=== PATIENT | male | born 1955 | race Caucasian/White ===

== ENCOUNTER → 2020-09-04 12:07 | Outpatient (BNVA) | payer MEDICARE, SELFPAY | PROVIDERS: Family Provider Family Medicine; Visit Provider Nurse Practitioner | DX: Z20.828 Contact with and (suspected) exposure to other viral communicable diseases (principal) | CPT/HCPCS: 87635 ==

== ENCOUNTER 2020-10-07 20:26 | Observation (INO) | payer MEDICARE, SELFPAY ==
[2020-10-07] VITALS (17 sets, daily range): BP systolic 104–153; BP diastolic 75–114; PULSE 77–119; RESP 15–22; TEMP 36.9; O2SAT 91–93; BMI 40.6
--- NOTE | 2020-10-07 21:00 | ECG_ITS ---
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 Measurements Intervals [place] Rate: 109 P: 66 WI: 202 QRS: -61 QRSD: 99 T: 60 QT: 328 QTc: 442 Interpretive Statements SINUS TACHYCARDIA WITH FREQUENT SUPRAVENTRICULAR PREMATURE COMPLEXES PATTERN CONSISTENT WITH PULMONARY DISEASE LEFT ANTERIOR FASCICULAR BLOCK [QRS AXIS <= -45, QR IN I, RS IN II] Compared to ECG 10/07/2020 23:18:27 Ventricular premature complex(es) no longer present Aberrant conduction of supraventricular beat(s) no longer present Electronically Signed On 10-09-2020 10:59:55 AFRICAN HISTORY PROFESSOR by Mohsen Pratt M.D. [id number] f
--- NOTE | 2020-10-07 21:00 | XR_ITS ---
WS: [id number] Portable AP upright chest, 10/07/2020 Clinical Data: cp Comparison: Portable chest, 09/02/2018. Findings: No nodules, masses or effusions are seen. The heart is normal. The pulmonary vascularity is not increased. No pneumonia or pneumothorax is seen. There is opacity over the left diaphragm which probably represents atelectasis. The left diaphragm is slightly elevated. The aortic arch and descend ing aorta show tortuosity. There is minimal atelectasis over the surface of the right diaphragm. Jessica tor leads are on the chest wall. XR/XR chest 1V portable [id number] Impression: 1. Atherosclerosis. 2. Minimal atelectasis over right diaphragm and moderate atelectasis over left diaphragm.
--- NOTE | 2020-10-07 21:23 | W.ED.SOB ---
HPI - SOB/Dyspnea General: Chief Complaint: Shortness of Breath/Dyspnea Stated Complaint: possible cardiac issues Time Seen by Provider: 10/07/20 21:00 Source: patient Mode of arrival: ambulatory Limitations: no limitations History of Present Illness: HPI Narrative: 65-year-old male states that he diagnosed with Covid roughly 4 weeks ago. He states of last 2 days has had some shortness of breath and has noticed had some palpitations along with a burning sensation in his chest. He states his symptoms have improved here. He denies any worsening improving factors. He does have some tachycardia here. Denies any vomiting or diarrhea. Associated symptoms: Deny abdominal pain, chest pain, fever(s), nausea or vomiting Review of Systems Const: Denies: fever(s), chills, body aches or change in appetite Eyes: Denies: blurry vision or eye discomfort ENMT: Denies: throat pain or dental pain Card: Denies: chest pain Resp: Reports: dyspnea GI: Denies: abdominal pain, nausea, vomiting or diarrhea : Denies: dysuria Musc: Denies: neck pain or back pain Skin/Breast: Denies: rash Neuro: Denies: headache(s) Psych: Denies: depression Yogesh/Lymph: Denies: easy bruising All/Imm: Denies: urticaria PFSH ED PFSH: Social History Smoking and tobacco status: never smoked Alcohol intake: never History of recent travel: No Current gender identity: Male Physical Exam Const: COMMON NORMALS: no acute distress, patient oriented x3 and healthy appearing HENMT: COMMON NORMALS: normocephalic and atraumatic HEAD & SCALP: normocephalic and atraumatic Eye: COMMON NORMALS: Equal, round and reactive pupils present and EOMs intact bilaterally PUPIL: Yes Equal, round and reactive pupils present Neck/C-Spine: COMMON NORMALS: full ROM and supple Chest: COMMONS NORMALS: normal inspection of the chest and normal palpation of entire chest wall Resp: COMMON NORMALS: normal respiratory effort, No retractions and No use of accessory muscles AUSCULTATION: rales on the left Cardio: COMMON NORMALS: regular rate, regular rhythm and No murmurs present (Cardio) RATE: regular rate RHYTHM: regular rhythm GI: COMMON NORMALS: Normal to inspection, nondistended, normoactive bowel sounds present, Soft to palpation, non-tender and no masses PALPATION: Yes Soft to palpation Extremity: COMMON NORMALS: normal to inspection and full ROM Neuro: COMMON NORMALS: patient oriented x3, moves all extremities and no focal motor deficits Psych: COMMON NORMALS: mental status grossly normal, Normal thought process present and cooperative THOUGHT PROCESS: Normal thought process present Skin: COMMON NORMALS: no rashes or lesions noted and no wounds GENERAL SKIN EXAM: no rashes or lesions noted Course Vital Signs: Vital signs: Vital Signs Temperature 98.4 F 10/07/20 20:38 Pulse Rate 92 10/07/20 23:53 Respiratory Rate 18 10/07/20 23:53 Blood Pressure 104/75 10/07/20 23:53 Pulse Oximetry 92 10/07/20 23:53 MDM - SOB/Dyspnea MDM Narrative: Medical decision making narrative: Imtiaz presents here with new onset atrial fib. Patient's chest x-ray and CT chest here show atelectasis no signs of pulmonary embolism. He has no history of A. fib and I spoke to hospitalist will admit for observation for his new onset A. fib. Lab Data: Labs: Lab Results 10/07/20 10/07/20 10/07/20 Range/Units 21:10 21:10 21:10 WBC 12.1 H (4.0-10.0) 10^3/ uL RBC 4.70 (4.1-5.3) 10^6/u L Hgb 13.6 (11.7-16.6) g/dL Hct 42.8 (42.0-52.0) % MCV 91.1 (80-94) fL MCH 28.9 (28.0-34.0) pg MCHC 31.8 (30.0-36.0) g/dL RDW 13.3 (12.1-15.1) % Plt Count 278 (130-400) 10^3/c mm MPV 9.7 (7.4-10.4) fL Neut % (Auto) 72.5 % Lymph % (Auto) 16.7 % [place] % (Auto) 7.2 % Eos % (Auto) 1.7 % Baso % (Auto) 0.5 % Neut # (Auto) 8.79 H (1.8-7.7) 10^3/u L Lymph # (Auto) 2.0 (0.8-4.8) 10^3/u L [place] # (Auto) 0.9 (0.2-0.9) 10^3/u L Eos # (Auto) 0.2 (0.0-0.8) 10^3/u L Baso # (Auto) 0.1 (0.0-0.1) 10^3/u L Nucleated RBC % (a uto) 0 % Nucleated RBCs # 0.0 /100WBC PT 13.40 (12.1-14.9) SECO NDS INR 0.99 (0.8-1.2) D-Dimer 0.99 H (0-0.59) ug/mIFE U Sodium 140 (136-145) mmol/L Potassium 4.6 (3.5-5.1) mmol/L Chloride 101 (98-107) mmol/L Carbon Dioxide 26 (22-29) mmol/L Anion Gap 17.6 (5-19) BUN 24 H (8-23) mg/dL Creatinine 0.8 (0.7-1.2) mg/dL GFR Calculation 96.4 (90-130) mL/min Glucose 140 H (65-115) mg/dL Calculated Osmolal ity 296 H (285-295) mOsm/k g Calcium 11.4 H (8.5-10.5) mg/dL Total Bilirubin 0.4 (0.15-1.2) mg/dL AST 28 (0-40) U/L ALT 44 H (0-41) U/L Alkaline Phosphata se 70 (40-130) IU/L Troponin T Baselin e (0-15) ng/L Troponin T 120 Min florentin (0-15) ng/L Delta Troponin T (0-10) ABS# NT-Pro-B Natriuret Pep 117 (0-125) pg/mL Total Protein 8.0 (6.6-8.7) g/dL Albumin 4.3 (3.5-5.2) g/dL Globulin 3.7 (1.3-4.6) g/dL 10/07/20 10/07/20 Range/Units 21:10 22:53 WBC (4.0-10.0) 10^3/ uL RBC (4.1-5.3) 10^6/u L Hgb (11.7-16.6) g/dL Hct (42.0-52.0) % MCV (80-94) fL MCH (28.0-34.0) pg MCHC (30.0-36.0) g/dL RDW (12.1-15.1) % Plt Count (130-400) 10^3/c mm MPV (7.4-10.4) fL Neut % (Auto) % Lymph % (Auto) % [place] % (Auto) % Eos % (Auto) % Baso % (Auto) % Neut # (Auto) (1.8-7.7) 10^3/u L Lymph # (Auto) (0.8-4.8) 10^3/u L [place] # (Auto) (0.2-0.9) 10^3/u L Eos # (Auto) (0.0-0.8) 10^3/u L Baso # (Auto) (0.0-0.1) 10^3/u L Nucleated RBC % (a uto) % Nucleated RBCs # /100WBC PT (12.1-14.9) SECO NDS INR (0.8-1.2) D-Dimer (0-0.59) ug/mIFE U Sodium (136-145) mmol/L Potassium (3.5-5.1) mmol/L Chloride (98-107) mmol/L Carbon Dioxide (22-29) mmol/L Anion Gap (5-19) BUN (8-23) mg/dL Creatinine (0.7-1.2) mg/dL GFR Calculation (90-130) mL/min Glucose (65-115) mg/dL Calculated Osmolal ity (285-295) mOsm/k g Calcium (8.5-10.5) mg/dL Total Bilirubin (0.15-1.2) mg/dL AST (0-40) U/L ALT (0-41) U/L Alkaline Phosphata se (40-130) IU/L Troponin T Baselin e 13 (0-15) ng/L Troponin T 120 Min florentin 15.43 H (0-15) ng/L Delta Troponin T 2.43 (0-10) ABS# NT-Pro-B Natriuret Pep (0-125) pg/mL Total Protein (6.6-8.7) g/dL Albumin (3.5-5.2) g/dL Globulin (1.3-4.6) g/dL Imaging Data^: CXR: Attestation: I personally reviewed and interpreted this imaging study as follows: My impression: lll pneumonia CT Chest: Radiologist's impression: [employer] [place] [address] CT Scan Report Signed Patient: Imtiaz Sheth Unit #: [id number] : 1955 Age/Sex: 65 / M ADM Date: 10/07/20 Loc: ER Room/Bed: Attending Dr: Ordering Provider/Ordering MD: Domi Baker MD Date of Service: 10/07/20 Procedure(s): CT angio chest PE protcl [id number] Accession Number(s): [id number] Report Number: [id number] PROCEDURE INFORMATION: Exam: CT Angiography Chest With Contrast Exam date and time: 10/07/2020 10:14 PM Age: 65 years old Clinical indication: Patient HX: C/O SOB and dyspnea. 4 weeks post covid positive. TECHNIQUE: Imaging protocol: Computed tomographic angiography of the chest with contrast. 3D rendering (Not supervised by radiologist): MIP and/or 3D reconstructed images were created by the technologist. Radiation optimization: All CT scans at this facility use at least one of these dose optimization techniques: automated exposure control; mA and/or kV adjustment per patient size (includes targeted exams where dose is matched to clinical indication); or iterative reconstruction. Contrast material: OMNI 350; Contrast volume: 141 ml; Contrast route: INTRAVENOUS (IV); COMPARISON: CR XR chest 1V portable [id number] 10/07/2020 9:04 PM RADIATION DOSE METRICS: Total DLP (mGy-cm): 1510.23 FINDINGS: Limitations: Suboptimal/less than robust opacification the pulmonary arterial tree. Pulmonary arteries: There is no evidence of filling defects within the pulmonary arterial circulation to suggest pulmonary embolism. Aorta: There is no thoracic aortic aneurysm or dissection. Lungs: There is partial atelectasis in the left lower lobe and lingula abutting the diaphragm. There is also some mild subsegmental atelectasis posteriorly at the right lung base. No focal infiltrate or pneumonia is identified. Pleural spaces: Unremarkable. No pneumothorax. No pleural effusion. Heart: Unremarkable. No cardiomegaly. No pericardial effusion. Mediastinal space: A moderate hiatal hernia is present. There is thickening of the mid and distal esophagus which may represent esophagitis. Correlation with clinical findings is suggested. Lymph nodes: There is mild right paratracheal adenopathy with lymph nodes measuring up to 13 x 19 mm there are also prominent lymph nodes in the subcarinal region and small prevascular lymph nodes. Diaphragm: There is chronic elevation of left hemidiaphragm. Bones/joints: There is mild wedging of T11 which appears represent chronic osteoporotic compression fracture.. Soft tissues: Unremarkable. CT/CT angio chest PE protcl [id number] IMPRESSION: 1. Limited examination due to poor contrast opacification of the pulmonary arteries. 2. No gross evidence of pulmonary embolism. 3. Mild paratracheal adenopathy. 4. Hiatus hernia. 5. Esophageal thickening which may represent esophagitis. Further evaluation on a non urgent basis is suggested. 6. Pulmonary atelectasis. 7. There is no evidence for pneumonia. EKG Data^: EKG 1: Attestation: I personally reviewed and interpreted this EKG as follows: EKG Interpretation Date: 10/07/20 EKG interpretation time: 20:43 Interpretation: sinus tach hr [address] or t wave abnormalities qrs 93 qtc 388 EKG 2: Attestation: I personally reviewed and interpreted this EKG as follows: EKG Interpretation Date: 10/07/20 EKG interpretation time: 23:18 Interpretation: afib with rvr hr [address] or t wave abnormalities qrs 9 qtc 383 Discharge Plan Discharge Patient Disposition: Admitted As Inpatient Clinical Impression: Atelectasis, Atrial fibrillation Condition: Stable Discharge Diet: Advance as tolerated Discharge Activity: Resume usual activity Coding Level of Care Code ED Terrazzo Worker for Chg Fwd Exam Comprehensive
[2020-10-07 21:40] LABS: Basophils # 0.1 10^3/uL (0.0-0.1); Basophils % 0.5 %; Eosinophils # 0.2 10^3/uL (0.0-0.8); Eosinophils % 1.7 %; Hematocrit 42.8 % (42.0-52.0); Hemoglobin 13.6 g/dL (11.7-16.6); Lymphocytes % 16.7 %; Mean Corpuscular HGB Conc 31.8 g/dL (30.0-36.0); Mean Corpuscular Hemoglobin 28.9 pg (28.0-34.0); Mean Corpuscular Volume 91.1 fL (80-94); Mean Platelet Volume 9.7 fL (7.4-10.4); Monocytes # 0.9 10^3/uL (0.2-0.9); Monocytes % 7.2 %; Neutrophils # 8.79 10^3/uL (1.8-7.7); Neutrophils % 72.5 %; Nucleated Red Blood Cells % 0 %; Platelet Count 278 10^3/cmm (130-400); Red Cell Distribution Width 13.3 % (12.1-15.1); White Blood Count 12.1 10^3/uL (4.0-10.0)
[2020-10-07] MEDS: cefTRIAXone 1,000 MG in sodium chloride 0.9% (plus) 50 ML 100 MG IV (21:45)
[2020-10-07 21:51] LABS: INR 0.99 (0.8-1.2)
[2020-10-07 21:54] LABS: D Dimer 0.99 ug/mIFEU (0-0.59)
--- NOTE | 2020-10-07 21:55 | CTR_ITS ---
PROCEDURE INFORMATION: Exam: CT Angiography Chest With Contrast Exam date and time: 10/07/2020 10:14 PM Age: 65 years old Clinical indication: Patient HX: C/O SOB and dyspnea. 4 weeks post covid positive. TECHNIQUE: Imaging protocol: Computed tomographic angiography of the chest with contrast. 3D rendering (Not supervised by radiologist): MIP and/or 3D reconstructed images were created by the technologist. Radiation optimization: All CT scans at this facility use at least one of these dose optimization techniques: automated exposure control; mA and/or kV adjustment per patient size (includes targeted exams where dose is matched to clinical indication); or iterative reconstruction. Contrast material: OMNI 350; Contrast volume: 141 ml; Contrast route: INTRAVENOUS (IV); COMPARISON: CR XR chest 1V portable [id number] 10/07/2020 9:04 PM RADIATION DOSE METRICS: Total DLP (mGy-cm): 1510.23 FINDINGS: Limitations: Suboptimal/less than robust opacification the pulmonary arterial tree. Pulmonary arteries: There is no evidence of filling defects within the pulmonary arterial circulation to suggest pulmonary embolism. Aorta: There is no thoracic aortic aneurysm or dissection. Lungs: There is partial atelectasis in the left lower lobe and lingula abutting the diaphragm. There is also some mild subsegmental atelectasis posteriorly at the right lung base. No focal infiltrate or pneumonia is identified. Pleural spaces: Unremarkable. No pneumothorax. No pleural effusion. Heart: Unremarkable. No cardiomegaly. No pericardial effusion. Mediastinal space: A moderate hiatal hernia is present. There is thickening of the mid and distal esophagus which may represent esophagitis. Correlation with clinical findings is suggested. Lymph nodes: There is mild right paratracheal adenopathy with lymph nodes measuring up to 13 x 19 mm there are also prominent lymph nodes in the subcarinal region and small prevascular lymph nodes. Diaphragm: There is chronic elevation of left hemidiaphragm. Bones/joints: There is mild wedging of T11 which appears represent chronic osteoporotic compression fracture.. Soft tissues: Unremarkable. CT/CT angio chest PE protcl [id number] IMPRESSION: 1. Limited examination due to poor contrast opacification of the pulmonary arteries. 2. No gross evidence of pulmonary embolism. 3. Mild paratracheal adenopathy. 4. Hiatus hernia. 5. Esophageal thickening which may represent esophagitis. Further evaluation on a non urgent basis is suggested. 6. Pulmonary atelectasis. 7. There is no evidence for pneumonia. Radiation Dose CTDIVOL = (mGy): DLP = 1510.23 (mGy-cm)
[2020-10-07 22:00] LABS: Troponin(5th) Baseline 13 ng/L (0-15)
[2020-10-07 22:09] LABS: Alanine Aminotransferase 44 U/L (0-41); Albumin Level 4.3 g/dL (3.5-5.2); Alkaline Phosphatase 70 IU/L (40-130); Anion Gap 17.6 (5-19); Aspartate Amino Transferase 28 U/L (0-40); Blood Urea Nitrogen 24 mg/dL (8-23); Calcium 11.4 mg/dL (8.5-10.5); Carbon Dioxide 26 mmol/L (22-29); Chloride 101 mmol/L (98-107); Creatinine Clr Calc Pharmacy 127.9923; Globulin 3.7 g/dL (1.3-4.6); Glomerular Filtration Rate 96.4 mL/min (90-130); Glucose 140 mg/dL (65-115); NT Pro B Type Natriuretic Pept 117 pg/mL (0-125); Osmolality Calculated 296 mOsm/kg (285-295); Potassium 4.6 mmol/L (3.5-5.1); Sodium 140 mmol/L (136-145); Total Bilirubin 0.4 mg/dL (0.15-1.2)
[2020-10-07] MEDS: iohexol 350 mg/mL 100 mL Btl IV ×2 (22:25→22:29)
[2020-10-07] MEDS: azithromycin 500 MG in sodium chloride 0.9% 250 ML 250 MG IV (22:41)
[2020-10-07] MEDS: lidocaine 2% viscous 15 ML, aluminum-mag hydrox-simethicon 30 ML, sucralfate oral liq 1 GM PO (22:43)
[2020-10-07] MEDS: ondansetron 2 mg/ML SDV 2 mL 4 MG IVP (22:57)
--- NOTE | 2020-10-07 23:00 | ECG_ITS ---
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1955 Requested By: Domi Baker Order Number: [id number] Reading MD: JUANJOSE STEELE Measurements Intervals [place] Rate: 110 P: MT: QRS: -56 QRSD: 93 T: 56 QT: 318 QTc: 430 Interpretive Statements ATRIAL FIBRILLATION WITH RAPID VENTRICULAR RESPONSE WITH ABERRANT CONDUCTION OR VENTRICULAR PREMATURE COMPLEXES PATTERN CONSISTENT WITH PULMONARY DISEASE LEFT ANTERIOR FASCICULAR BLOCK [QRS AXIS <= -45, QR IN I, RS IN II] Compared to ECG 09/02/2018 19:29:55 Ventricular premature complex(es) now present Aberrant conduction of supraventricular beat(s) now present Left anterior fascicular block now present Bradycardia, nonsinus no longer present T-wave abnormality no longer present Possible ischemia no longer present Electronically Signed On 10-09-2020 21:35:03 AUTO PARTS COUNTER PERSON by JUANJOSE STEELE [id number]
--- NOTE | 2020-10-07 23:21 | PC.NURSE ---
EKG done 2319 and shown to ER doctor
[2020-10-07 23:23] LABS: Troponin 5 2HR 15.43 ng/L (0-15); Troponin 5 2HR Delta 2.43 ABS# (0-10)
[2020-10-07] MEDS: albuterol 8 gm MDI 2 PUFF INHALATION (23:36)
[2020-10-08] VITALS (15 sets, daily range): BP systolic 105–143; BP diastolic 65–87; PULSE 70–108; RESP 17–26; TEMP 36.9; O2SAT 91–93
--- NOTE | 2020-10-08 01:42 | P.HP_ITS ---
Providers/Chief Complaint Primary Care Provider: Vidal Kaye DO Chief Complaint: possible cardiac issues History of Present Illness Imtiaz Sheth is a 65 year old male with a history of hypertension presented to the emergency department with a complaint of shortness of breath and palpitations. Patient denied any chest pain. Patient EKG demonstrated rapid atrial fibrillation. He was given a dose of Cardizem which improved his heart rate. Patient denied any history of atrial fibrillation or cardiac condition but noted he is supposed to be on diltiazem ER and spironolactone. CTA thorax done in the ED shows atelectasis, no infiltrate. Initial troponin is negative. Patient is placed under observation for further management of atrial fibrillation. Review of Systems Narrative: He denied any headache, he denied any nausea or vomiting or d iarrhea. He denied any abdominal pain. Except as documented, all other systems reviewed and negative. Medications/Allergies Home Medications Medication Instructions Recorded Confirmed Last Taken Type alprazolam 0.25 mg tablet See Rx Instructions PO DAILY PRN 09/04/20 10/07/20 Unknown History diltiazem HCl 240 mg capsule,24 180 mg PO BID@1000,2200 cap 09/04/20 10/07/20 10/07/20 History hr,extended release pantoprazole 40 mg tablet,delayed 40 mg PO DAILY@2200 09/04/20 10/07/20 10/06/20 History release sertraline 100 mg tablet 150 mg PO DAILY@1000 tab 09/04/20 10/07/20 10/07/20 History spironolactone 25 mg tablet 25 mg PO DAILY@1000 09/04/20 10/07/20 10/07/20 History Vitamin D3 50 mcg PO DAILY@1000 10/07/20 10/07/20 10/07/20 History albuterol sulfate 2 inh INHALATION Q6H PRN #8 gm 10/07/20 Unknown Rx ascorbic acid (vitamin C) [Vitamin 250 mg PO DAILY@1000 10/07/20 10/07/20 10/07/20 History C] cefdinir 300 mg PO BID@1000,2200 10/07/20 10/07/20 10/07/20 History cephalexin [Keflex] 500 mg PO Q6H 7 Days #28 cap 10/07/20 Unknown Rx fluticasone propionate 1 spray INTRANASAL DAILY PRN 10/07/20 10/07/20 Unknown History levofloxacin 500 mg PO DAILY@1000 10/07/20 10/07/20 10/07/20 History losartan-hydrochlorothiazide 1 tab PO DAILY@2200 10/07/20 10/07/20 10/06/20 Hist ory ondansetron 4 mg PO Q6H PRN #14 tab 10/07/20 Unknown Rx zinc 1 tab PO DAILY@1000 10/07/20 10/07/20 10/07/20 History Allergies Allergy/AdvReac Type Severity Reaction Status Date / Time Penicillins Allergy Unknown Unknown Verified 09/04/20 09:12 PFSH Acute PFSH: Medical History (Updated 10/08/20 @ 02:45 by Robert Newman MD) Hypertension Family History (Updated 10/08/20 @ 02:40 by Robert Newman MD) Mother Diabetes Social History Smoking and tobacco status: never smoked Alcohol intake: never History of recent travel: No Current gender identity: Male Vitals/I&O/Wt Last Vital Signs Temp 98.4 F 10/07/20 20:38 Pulse 76 10/08/20 00:35 Resp 18 10/08/20 00:35 BP 143/85 10/08/20 00:35 Pulse Ox 92 10/08/20 00:35 10/07/20 10/07/20 10/08/20 14:59 22:59 06:59 Intake Total 50 / 50 250 / 300 Balance 50 / 50 250 / 300 Weight last 48 hrs Weight 136.078 kg Physical Exam Const: COMMON NORMALS: no acute distress, patient oriented x3 and alert NUTRITIONAL APPEARANCE: obese HENMT: COMMON NORMALS: normocephalic, atraumatic and moist oral mucous membranes Eye: COMMON NORMALS: Equal, round and reactive pupils present, EOMs intact bilaterally, conjunctivae normal and no scleral icterus Neck/C-Spine: COMMON NORMALS: no lymphadenopathy, supple, no JVD and Thyroid normal Lymph: LYMPHATIC: no lymphadenopathy noted Chest: COMMONS NORMALS: normal inspection of the chest Resp: COMMON NORMALS: normal respiratory effort, No retractions, No use of accessory muscles and clear to auscultation bilaterally Cardio: COMMON NORMALS: S1 normal heart sound present and S2 normal heart sound present RHYTHM: abnormal rhythm irregularly irregular GI: COMMON NORMALS: Normal to inspection, nondistended, normoactive bowel sounds present, Soft to palpation, non-tender and No hepatosplenomegaly present : COMMON NORMALS: Yes no CVA tenderness Back/Pelvis: COMMON NORMALS: no CVA tenderness and no thoracic nor lumbar tenderness Extremity: COMMON NORMALS: normal to inspection, capillary refill normal, no clubbing, cyanosis or edema and no pedal edema Neuro: COMMON NORMALS: patient oriented x3, CN's II-XII intact bilaterally, moves all extremities and no focal motor deficits Psych: COMMON NORMALS: mental status grossly normal, Normal thought process present, normal affect and speech normal Skin: COMMON NORMALS: no rashes or lesions noted, turgor normal and no jaundice Data : 10/07/20 21:10 10/07/20 21:10 Micro: Microbiology 10/07/20 21:41 Blood Culture - Preliminary Blood SPECIMEN COLLECTED 10/07/20 21:38 Blood Culture - Preliminary Blood SPECIMEN COLLECTED A&P Assessment and plan (1) Atrial fibrillation: Status: Acute (2) Hypertension: Status: Chronic (3) COVID-19 virus infection: Status: Inactive Additional A&P Information Place patient under observation. Supplemental oxygen as needed. We will resume his home dose Cardizem. Obtain echocardiogram. Continue to trend troponin. Continue other home antihypertensives. Cardiology consult. Anticoagulation per cardiology. Attestations Medical Necessity Statement*: Patient presenting with rapid atrial fibrillation of new onset. He will need to be hospitalized for further evaluation and management. He is expected to spend less than 2 midnights. Time Spent in Patient Care: 56 minutes. Coding Level of Care Code Acute Data Warehouse Consultant for [facility] Fwd Exam Comprehensive Diagnoses Atrial fibrillation I48.91 Hypertension I10 COVID-19 virus infection U07.1
--- NOTE | 2020-10-08 02:46 | USCV_ITS ---
Meryl Imtiaz Age: 65 Gender: M : 1955 Exam Date: 10/08/2020 05:46 Ordering Phys: Robert Newman MD Technologist: Jazmyn Veloz [place] [facility] [place]: NEW ONSET OF AFIB BP: 136 / 80 HR: 89 Rhythm: Atrial fibrillation Technical Quality: Technically difficult study MEASUREMENTS (Male / Female) Normal Values 2D ECHO LV Diastolic Diameter PLAX 4.9 cm 4.2 - 5.9 / 3.9 - 5.3 cm LV Systolic Diameter PLAX 2.7 cm LV Chamber Size 4.4 cm IVS Diastolic Thickness 1.5 cm 0.6 - 1.0 / 0.6 - 0.9 cm IVS Systolic Thickness 2.4 cm LVPW Diastolic Thickness 1.6 cm 0.6 - 1.0 / 0.6 - 0.9 cm LVPW Systolic Thickness 2.1 cm RV Chamber Size 2.0 cm LVOT Diameter 2.0 cm LV Ejection Fraction 2D Teich 76.2 % LV Ejection Fraction MOD 2C 39.6 % LV Ejection Fraction 2C AL 42.1 % LA Diameter 2.9 cm LA Width 4.0 cm LA Height 4.9 cm RA Width 3.4 cm RA Height 3.5 cm Aorta at Sinotubular Diameter 4.0 cm M-MODE LV Diastolic Diameter MM 4.3 cm 4.2 - 5.9 / 3.9 - 5.3 cm LV Systolic Diameter MM 2.9 cm LV Ejection Fraction MM Teich 60.5 % IVS Diastolic Thickness MM 1.4 cm 0.6 - 1.0 / 0.6 - 0.9 cm IVS Systolic Thickness MM 1.7 cm LVPW Diastolic Thickness MM 0.9 cm 0.6 - 1.0 / 0.6 - 0.9 cm LVPW Systolic Thickness MM 2.0 cm RV Diastolic Diameter MM 1.4 cm Aortic Annulus Diameter 4.2 cm LA Ao Ratio MM 1.0 MV E Point Septal Separation 0.6 cm DOPPLER AV Peak Velocity 136.0 cm/s LVOT Peak Velocity 95.0 cm/s AV Area Cont Eq vti 2.2 cm squared AV Area Cont Eq pk 2.3 cm squared MV Area PHT 2.3 cm squared MV E' Velocity 48.0 cm/s Mitral E to MV E' Ratio 5.6 Mitral E to LV E' Lateral Ratio 4.9 Mitral E to LV E' Septal Ratio 6.6 TR Peak Velocity 152.3 cm/s TR Peak Gradient 9.3 mmHg TR Mean Velocity 111.4 cm/s TR Mean Gradient 5.4 mmHg TR Velocity Time Integral 36.9 cm TV Peak E Velocity 72.0 cm/s Right Atrial Pressure 5.0 mmHg Pulmonary Artery Systolic Pressu 14.3 mmHg PV Peak Velocity 76.0 cm/s RV Acceleration Time 0.2 s RV Ejection Time 0.3 s RV AcT/ET 0.5 FINDINGS Left Ventricle Normal left ventricular cavity size. Hyperdynamic left ventricular systolic function. No regional wall motion abnormalities. Left ventricular ejection fraction is estimated at 70 %. Grade I/IV diastolic dysfunction (abnormal relaxation filling pattern), normal to mildly elevated filling pressures. Right Ventricle The right ventricle is normal in size and function. Right Atrium The right atrium is normal in size. Left Atrium The left atrium is normal in size. Mitral Valve Structurally normal mitral valve without significant stenosis or prolapse. There is no mitral regurgitation. Aortic Valve Aortic valve sclerosis without stenosis or regurgitation. Tricuspid Valve Structurally normal tricuspid valve without significant stenosis or regurgitation. Pulmonary artery systolic pressure is normal. Pulmonic Valve Structurally normal pulmonic valve without significant stenosis. There is no pulmonic regurgitation. Pericardium Normal pericardium without effusion. Aorta Normal ascending aorta dimension. CONCLUSIONS 1-Normal left ventricular cavity size. Hyperdynamic left ventricular systolic function. No regional wall motion abnormalities. Left ventricular ejection fraction is estimated at 70 %. Grade I/IV diastolic dysfunction (abnormal relaxation filling pattern), normal to mildly elevated filling pressures. 2-No significant valve abnormalities. 3-Pulmonary artery systolic pressure is within normal limits. 4-There is no pericardial effusion. 5-Right atrial pressure is around 5 mm of mercury. 6-There are no prior echocardiogram studies to compare. Caroline Quiroz MD (Electronically Signed) Final Date: 08 October 2020 13:42 S
[2020-10-08] MEDS: alum-mag-hydroxide-sime 30 mL UDC 15 ML PO (05:01)
--- NOTE | 2020-10-08 08:26 | PM.CONSULT ---
Providers/Reason For Consult Consulting Physican/Specialty*: Mohsen Pratt MD/ Cardiology Reason for Consult*: New onset atrial fibrillation Requesting Physcian: Dr Newman Attending Physician: Nehemias Dill MD Primary Care Provider: Vidal Kaye DO History of Present Illness History of Present Illness Imtiaz Sheth is a 65 year old male with a history of hypertension presented to the emergency department with a complaint of palpitations and heartburn. He also had an episode of vomiting.. Patient denied any chest pain. Patient's EKG showed sinus rhythm with frequent PACs however per report from hospitalist team, he was in atrial fibrillation with RVR before getting Cardizem. Patient received Cardizem and converted to normal sinus rhythm. Cardiology was consulted for recommendations regarding anticoagulation and rate controlling agents. Patient is currently in normal sinus rhythm. He denies any complaints of chest pain, shortness of breath or palpitations. His blood pressure is controlled. Review of Systems Narrative: CONSTITUTIONAL: No fever chills weight loss or gain or night sweats. [] HEENT: Normocephalic, atraumatic.[] RESPIRATORY: No cough, sputum, hemoptysis or wheezing.[] CARDIOVASCULAR: No shortness of breath, chest pain, PND, orthopnea, lower extremity edema, presyncope or syncope. [] GI: no nausea vomiting diarrhea. [] ETHICS MANAGER: No numbness, tingling, weakness or loss of function in any part of the body. [] MUSCULOSKELETAL: No knee or joint pain or rashes. [] Meds/Allergies Home Medications and Allergies Home Medications Medication Instructions Recorded Confirmed Last Taken Type alprazolam 0.25 mg tablet See Rx Instructions PO DAILY PRN 09/04/20 10/07/20 Unknown History diltiazem HCl 240 mg capsule,24 180 mg PO BID@1000,2200 cap 09/04/20 10/07/20 10/07/20 History hr,extended release sertraline 100 mg tablet 150 mg PO DAILY@1000 tab 09/04/20 10/07/20 10/07/20 History spironolactone 25 mg tablet 25 mg PO DAILY@1000 09/04/20 10/07/20 10/07/20 History Vitamin D3 50 mcg PO DAILY@1000 10/07/20 10/07/20 10/07/20 History albuterol sulfate 2 inh INHALATION Q6H PRN #8 gm 10/07/20 Unknown Rx cefdinir 300 mg PO BID@1000,2200 10/07/20 10/07/20 10/07/20 History fluticasone propionate 1 spray INTRANASAL DAILY PRN 10/07/20 10/07/20 Unknown History losartan-hydrochlorothiazide 1 tab PO DAILY@2200 10/07/20 10/07/20 10/06/20 History ondansetron 4 mg PO Q6H PRN #14 tab 10/07/20 Unknown Rx zinc 1 tab PO DAILY@1000 10/07/20 10/07/20 10/07/20 History Protonix 40 mg PO BID #0 tab 10/08/20 10/07/20 10/06/20 Rx apixaban [Eliquis] 5 mg PO Q12H #60 tab 10/08/20 Unknown Rx Allergies Allergy/AdvReac Type Severity Reaction Status Date / Time Penicillins Allergy Unknown Unknown Verified 09/04/20 09:12 PFSH Acute PFSH: Medical History Hypertension Family History Mother Diabetes Social History Smoking and tobacco status: never smoked Alcohol intake: never History of recent travel: No Current gender identity: Male Vitals/I&O/Wt Last Vital Signs Temp 98.5 F 10/08/20 04:00 Pulse 88 10/08/20 06:00 Resp 23 H 10/08/20 06:00 BP 129/65 10/08/20 06:00 Pulse Ox 93 10/08/20 06:00 10/07/20 10/08/20 10/08/20 22:59 06:59 14:59 Intake Total 50 / 50 250 / 300 100 / 100 Output Total 250 / 250 Balance 50 / 50 0 / 50 100 / 100 Weight last 48 hrs Weight 300 lb Physical Exam Narrative: EXAM NARRATIVE: GENERAL: Patient is alert, awake and oriented x3. [] NECK: No jugular vein distension. [] HEENT: No cyanosis. No icterus. No pallor. [] HEART: Regular S1 and S2. No murmur, rub or gallop. [] LUNGS: Clear to auscultate bilaterally. [] ABDOMEN: Soft, nontender and nondistended. Positive bowel sounds. No guarding, rebound or tenderness. [] CENTRAL NERVOUS SYSTEM: Grossly nonfocal. [] EXTREMITIES: Lower extremities with no edema bilaterally. Pulses palpable in the lower extremities, both dorsalis pedis and posterior tibial. [] Data Micro: Micro: Microbiology 10/07/20 21:41 Blood Culture - Pr eliminary Blood SPECIMEN [facility] 10/07/20 21:38 Blood Culture - Pr eliminary Blood SPECIMEN [facility] A&P Assessment and plan (1) Hypertension: Status: Chronic (2) Morbid obesity with BMI of 40.0-44.9, adult: Status: Acute (3) New onset atrial fibrillation: Status: Acute Patient's EKG shows sinus rhythm with frequent PACs. However has been reported before getting Cardizem he was in A. fib. No strips available. Given his chads vasc score is at least 2 with his age and hypertension, he needs anticoagulation for stroke prevention. I had a discussion about it with him and he agrees with initiating anticoagulation. As an outpatient we might need event monitor to confirm diagnosis of atrial fibrillation. Continue Cardizem Low-sodium diet and exercise advised. Echocardiogram has been ordered. If echo is normal, he can be discharged with outpatient follow-up. Thank you for involving us with care of this patient. Please call with questions. Coding Level of Care Code Acute Manager Residential for g Fwd Diagnoses Hypertension I10 Morbid obesity with BMI of 40.0-44.9, adult E66.01; Z68.41 New onset atrial fibrillation I48.91
[2020-10-08] MEDS: metoprolol tartrate 25 mg Tablet PO (08:48)
[2020-10-08] MEDS: cholecalciferol (vitamin D3) 1,000 unit Tablet 2000 UNIT PO (08:49)
[2020-10-08] MEDS: dilTIAZem ER (24HR) 180 mg Capsule PO (08:50)
[2020-10-08] MEDS: spironolactone 25 mg Tablet PO (08:50)
[2020-10-08] MEDS: sertraline 100 mg Tablet 150 MG PO (08:50)
[2020-10-08] MEDS: ascorbic acid 500 mg Tablet 250 MG PO (08:51)
--- NOTE | 2020-10-08 10:03 | PC.NURSE ---
up in room no distress at this time monitor vs
--- NOTE | 2020-10-08 12:54 | PM.DCS ---
Discharge Providers Date of Admission: 10/08/20 00:25 Date of Discharge: October 08, 2020 Attending Provider at Admission: Robert Newmna Attending Provider at Discharge: Nehemias Dill MD Primary Care Provider: Vidal Kaye DO Diagnoses at Discharge Discharge Diagnosis (1) Atrial fibrillation: Status: Acute (2) Hypertension: Status: Chronic (3) COVID-19 virus infection: Status: Inactive (4) Otitis media: Status: Acute Permanent problem details: Recently diagnosed prior to admission. (5) Esophagitis due to drug: Status: Acute Permanent problem details: Vitamin C and NSAIDs. Present on admission (6) Morbid obesity with BMI of 40.0-44.9, adult: Status: Acute Reason for Visit Reason for Visit: possible cardiac issues Hospital Course Hospital Course Patient reports that he developed significant heartburn and vomiting prior to admission. He was noted to be in atrial fibrillation with rapid ventricular response and currently converted back to normal sinus rhythm. He was seen by cardiology with recommendation to continue current medications and be initiated on Eliquis for stroke prevention. Risks and benefits of Eliquis were discussed with patient at length with the patient's daughter at bedside. Patient is aware of potential bleeding which could cause significant morbidity/disability and even mortality. Patient has been taking frequent ibuprofen for chronic migraine and recent ear infection. Patient was told to avoid any NSAIDs and I will increase Protonix to twice daily. This afternoon patient reports feeling much better and wants to go home. He has no evidence of pneumonia. Reports that after he was given IV ceftriaxone his ear discomfort much improved. He still has antibiotics prescribed prior to admission. At this point given significant clinical improvement I will give him 1 more dose of ceftriaxone and if echocardiogram shows normal EF Dr. Pratt is okay for patient to be dismissed with outpatient follow-up in 2 weeks. We have discussed regarding intermittent fasting to try and lose weight. Patient will discuss with his primary care physician to get more information regarding this or other diets. Patient denies previous history of diabetes. Physical Exam Narrative: EXAM NARRATIVE: Exam shows clear lungs and regular heart. Lower extremities show no edema. Abdomen is soft and nontender with positive bowel sounds. Umbilical hernia noted. Discharge Data Data Completed and Pending: Completed Studies During Hospitalization Category Date Time Status CT angio chest PE protcl [id number] Urge nt Cat Scan 10/07/20 21:55 Completed XR chest 1V tabatha ble [id number] Stat Exams 10/07/20 21:00 Completed Pending at discharge Category Date Time Status Basic Metabolic P donna AM LABS Lab 10/09/20 04:00 Ordered Blood Culture Sta t Lab 10/07/20 21:41 Results Complete Blood Co unt w/Auto AM LABS Lab 10/09/20 04:00 Ordered Lipid Panel AM LA BS Lab 10/09/20 04:00 Ordered Magnesium AM LABS Lab 10/09/20 04:00 Ordered Phosphorus AM LAB S Lab 10/09/20 04:00 Ordered Prothrombin Time INR AM LABS Lab 10/09/20 04:00 Ordered Thyroid Stimulati ng Hormone AM LABS Lab 10/09/20 04:00 Ordered CV echo complete* [id number] Urgent Ultrasound 10/08/20 02:46 Taken Labs from last 24 hours 10/07/20 10/07/20 10/07/20 22:53 21:10 21:10 WBC RBC Hgb Hct MCV MCH MCHC RDW Plt Count MPV Neut % (Auto) Lymph % (Auto) [place] % (Auto) Eos % (Auto) Baso % (Auto) Neut # (Auto) Lymph # (Auto) [place] # (Auto) Eos # (Auto) Baso # (Auto) Nucleated RBC % (a uto) Nucleated RBCs # PT INR D-Dimer Sodium 140 Potassium 4.6 Chloride 101 Carbon Dioxide 26 Anion Gap 17.6 BUN 24 H Creatinine 0.8 GFR Calculation 96.4 Glucose 140 H Calculated Osmolal ity 296 H Calcium 11.4 H Total Bilirubin 0.4 AST 28 ALT 44 H Alkaline Phosphata se 70 Troponin T Baselin e 13 Troponin T 120 Min [place] 15.43 H Delta Troponin T 2.43 NT-Pro-B Natriuret Pep 117 Total Protein 8.0 Albumin 4.3 Globulin 3.7 10/07/20 10/07/20 21:10 21:10 WBC 12.1 H RBC 4.70 Hgb 13.6 Hct 42.8 MCV 91.1 MCH 28.9 MCHC 31.8 RDW 13.3 Plt Count 278 MPV 9.7 Neut % (Auto) 72.5 Lymph % (Auto) 16.7 [place] % (Auto) 7.2 Eos % (Auto) 1.7 Baso % (Auto) 0.5 Neut # (Auto) 8.79 H Lymph # (Auto) 2.0 [place] # (Auto) 0.9 Eos # (Auto) 0.2 Baso # (Auto) 0.1 Nucleated RBC % (a uto) 0 Nucleated RBCs # 0.0 PT 13.40 INR 0.99 D-Dimer 0.99 H Sodium Potassium Chloride Carbon Dioxide Anion Gap BUN Creatinine GFR Calculation Glucose Calculated Osmolal ity Calcium Total Bilirubin AST ALT Alkaline Phosphata se Troponin T Baselin e Troponin T 120 Min [place] Troponin T NT-Pro-B Natriuret Pep Total Protein Albumin Globulin Vitals: Last Vital Signs Temp 98.5 F 10/08/20 04:00 Pulse 70 10/08/20 12:00 Resp 18 10/08/20 12:00 BP 113/78 10/08/20 12:00 Pulse Ox 93 10/08/20 12:00 Discharge Plan Discharge Patient Disposition: Home Condition: Stable Prescriptions: New albuterol sulfate 90 mcg/actuation HFA aerosol inhaler 2 inh INHALATION Q6H PRN (Reason: shortness of breath or wheezing) Qty: 8 RF: 0 ondansetron 4 mg tablet,disintegrating 4 mg PO Q6H PRN (Reason: nausea and vomiting) Qty: 14 RF: 0 Eliquis 5 mg tablet 5 mg PO Q12H Qty: 60 RF: 0 Continued diltiazem HCl 240 mg capsule,extended release 24 hr 180 mg PO BID@999,2199 RF: 0 spironolactone 25 mg tablet 25 mg PO DAILY@1000 RF: 0 alprazolam 0.25 mg tablet See Rx Instructions PO DAILY PRN (Reason: Anxiety) RF: 0 sertraline 100 mg tablet 150 mg PO DAILY@1000 RF: 0 losartan-hydrochlorothiazide 100-25 mg tablet 1 tab PO DAILY@2199 RF: 0 cefdinir 300 mg capsule 300 mg PO BID@999,2199 RF: 0 Vitamin D3 50 mcg PO DAILY@1000 RF: 0 zinc 1 tab PO DAILY@1000 RF: 0 fluticasone propionate 50 mcg/actuation [place],Suspension 1 spray INTRANASAL DAILY PRN (Reason: UNKNOWN) RF: 0 Changed Protonix 40 mg tablet,delayed release (DR/EC) 40 mg PO BID Qty: 0 RF: 0 Discontinued ascorbic acid (vitamin C) [Vitamin C] 500 mg Tablet 250 mg PO DAILY@1000 RF: 0 levofloxacin 500 mg tablet 500 mg PO DAILY@1000 RF: 0 Discharge Orders: Discharge Order (Routine); Ordered 10/08/20 Ordered By: Nehemias Dill Referrals: Mohsen Pratt M.D [Physician] - 2 weeks Vidal Kaye DO [Primary Care Provider] - 1-3 days Discharge Diet: Advance as tolerated Discharge Activity: Resume usual activity Patient Instructions: Dyspnea (ED) Activity Restrictions/Additional Instructions: Please call your doctor or present to emergency department if your condition worsens or you develop diarrhea, lightheadedness, fatigue or see blood in your stool or black stool. Please note that black stool could be the sign of upper GI bleed and you will need to immediately stop Eliquis or aspirin and present to emergency department or call your doctor. Please completely discontinue any NSAIDs including ibuprofen or Advil you have been taking recently. Please also discontinue vitamin C. As we have discussed Eliquis is initiated for stroke prevention but you will be more prone to bleeding and should avoid any cuts, bumps, falls or bruises. Should there be any signs of bleeding please discuss with your doctor or present to emergency department. Discharge Attestations Time Spent in Discharge Care*: greater than 30 min Quality Metrics Clinical Quality Measures During this hospital stay, did patient experience: None Coding Level of Care Code Acute Applications Instructor for g Fwd Diagnoses Atrial fibrillation I48.91 Hypertension I10 COVID-19 virus infection U07.1 Otitis media H66.90 Esophagitis due to drug K20.80; T36.4X5A Morbid obesity with BMI of 40.0-44.9, adult E66.01; Z68.41
[2020-10-08] MEDS: cefTRIAXone 2,000 MG in sodium chloride 0.9% (plus) 50 ML 100 MG IV (13:15)
--- NOTE | 2020-10-08 13:44 | PC.NURSE ---
Spoke with Dr. Quiroz. echocardiogram results are normal. Dr. Quiroz spoke with Dr. Pratt and has okayed the plan to discharge.
--- NOTE | 2020-10-08 14:06 | PC.CHAP ---
Pastoral Care Encounter/Spiritual Assessment Type of Contact [] Declined layout man visit [] Patient/Family/Request visit [] Outpatient visit [] Follow-up visit [] Physician referral [] Code/Alert [] Routine visit [] Staff referral [] Actively dying [] Patient sleeping [] Family support [] [] Out of room [] Palliative care [] [] Receiving care in room [] Pre-surgical visit [] Trauma [] Long length of stay [] ICU visit [] Other: Relational/Emotional Strength [] Patient feels connected with others/family/visitors/staff [] Distress [] Loneliness/isolation [] Abandonment Spirituality of Patient [] Person of Lisbeth [] Attends Rastafari of their Lisbeth [] Believes in Prayer [] Reads Bible or Jehovah'S Witness materials [] There are Spiritual issues to be addressed Copy Director Interventions [] Prayer [] Active listening [] Non-anxious presence [] Spiritual/emotional support [] Crisis/trauma care [] Spiritual counseling [] Bereavement support [] Provided bereavement packet [] Provided Bible/devotional materials [] Provided toy/stuffed animal, coloring book to patient or family member [] Provided Communion [] Anointing/[place] [] Salvation [] Completed spiritual assessment [] Other: Impact on Illness or Injury [] Angry [] Fearful [] Anxious [] Often cries [] Exhaustion [] Unable to work [] Unable to attend latter-day [] Unable to walk/stand [] Unable to read [] Unable to drive [] Unable to eat/drink [] Unable to sleep [] Unable to be with family [] Patient intubated [] Other: Summary Doctor was with patient preparing him to be transferred to another unit within a short time. Visit not done. Time spent with patient
--- NOTE | 2020-10-08 14:08 | PC.NURSE ---
piid removed for discharge at this time
--- NOTE | 2020-10-11 14:44 | PC.SOCIAL ---
Gavino donohue [place] called with 1 of 4 blood cultures showing positive for Micrococcus bacteria and felt to be a contaminant. Notified Dr Dill of result who also felt is a contaminant and no further treatment indicated. Called patient and explained the information and that provider does not feel this is a true bacteria in his blood stream therefore does not require treatment. He has been afebrile. He has appt with Dr Kaye later this week on the . Advised him to discuss further at appointment. Called and updated Nurse Ramonita at Dr Kaye office and faxed result over with confirmation was sent successfully. Ramonita indicates they will have Dr Kaye review.
== END 2020-10-08 14:28 | disposition home or self-care (01) ==
LOC: ER 10-08 00:33 → ICU 10-08 01:55
PROVIDERS: Admitting Provider Internal Medicine; Emergency Provider Emergency Medicine; PCP Family Medicine; Visit Provider Internal Medicine
DX: I48.91 Unspecified atrial fibrillation (principal); I10 Essential (primary) hypertension; U07.1 COVID-19; H66.90 Otitis media, unspecified, unspecified ear; K20.80 Other esophagitis without bleeding; T36.4X5A Adverse effect of tetracyclines, initial encounter; E66.01 Morbid (severe) obesity due to excess calories; Z68.41 Body mass index [BMI] 40.0-44.9, adult
CPT/HCPCS: 12345; 36415; 71045; 71275; 80053; 83880; 84484; 85025; 85378; 85610; 87040; 87205; 93005; 93306; 94640; 96365; 96367; 96375; 99283; 99285; G0378; J0456; J0696; J2405; J3535; J7050; Q9967

== ENCOUNTER → 2020-11-30 13:45 | Outpatient (BNVA) | payer MEDICARE, SELFPAY | PROVIDERS: PCP Family Medicine; Visit Provider Family Medicine | DX: Z20.822 Contact with and (suspected) exposure to COVID-19 (principal) | CPT/HCPCS: 87635 ==

== ENCOUNTER 2020-12-06 06:47 | Outpatient (CLI) | payer MEDICARE, SELFPAY ==
--- NOTE | 2020-12-06 09:31 | PFTS_ITS ---
Date of Study:12/06/20 Date of Dictation: MECHANICS: Forced vital capacity (FVC) is reduced. Forced expiratory volume in one second (FEV1) is reduced. FEV1/FVC is normal. FLOW VOLUME LOOP: Narrow. LUNG VOLUMES: Total lung capacity (TLC) is reduced. Residual volume (RV) is normal. DIFFUSING CAPACITY FOR CARBON MONOXIDE: Normal. INTERPRETATION: The postbronchodilator spirometry is consistent with moderate restriction. There is no significant postbronchodilator response. The reduced total lung capacity is consistent with restrictive lung disease. The patient has reduced inspiratory capacity and expiratory reserve volume. This constellation of PFT findings could be consistent with neuromuscular weakness. Gas exchange (DLCO) is normal. MTDD
== END 2020-12-06 06:48 | disposition home or self-care (01) ==
LOC: RT 06:51
PROVIDERS: PCP Family Medicine; Visit Provider Family Medicine
DX: R06.00 Dyspnea, unspecified (principal)
CPT/HCPCS: 94060; 94726; 94729; J7611

== ENCOUNTER 2021-01-27 09:38 | Outpatient (CLI) | payer MEDICARE, SELFPAY ==
--- NOTE | 2021-01-27 10:00 | FL_ITS ---
WS: [id number] FLUOROSCOPIC GUIDED SNIFF TEST INDICATION: Short of breath TECHNIQUE: Fluoroscopic guided sniff test FINDINGS: Elevation left hemidiaphragm. Poor left diaphragmatic excursion with paradoxical motion on inspiration and sniffing. Normal right diaphragmatic excursion. FL/FL sniff test [id number] IMPRESSION: 1. Paradoxical motion left hemidiaphragm suspicious for phrenic nerve palsy.. 2. Normal right hemidiaphragm diaphragmatic excursion.
== END 2021-01-27 09:39 | disposition home or self-care (01) ==
PROVIDERS: PCP Family Medicine; Visit Provider Internal Medicine Critical Care Medicine
DX: J98.6 Disorders of diaphragm (principal); R06.02 Shortness of breath
CPT/HCPCS: 76000

== ENCOUNTER 2021-11-09 09:48 | Outpatient (CLI) | payer MEDICARE, SELFPAY ==
--- NOTE | 2021-11-09 09:59 | MR_ITS ---
WS: [id number] MRI HEAD WITH CONTRAST WITH ATTENTION TO THE INTERNAL AUDITORY CANALS TECHNIQUE: Sagittal T1, T2 axial, T2 axial flair, axial susceptibility weighted imaging, axial diffus ion weighted images, and coronal T2 images were obtained. Pre and post T1 axial and post T1 coronal i mages. ADC and FSPGR images. Post gadolinium images with attention to the internal auditory canals. A xial fiesta imaging. CLINICAL INFORMATION: BENIGN NEOPLASM OF MID EAR, NASAL CAVITY AND ACCESSORY SINUS COMPARISON: None. FINDINGS: T2 hyperintense enhancing heterogeneous lesion in region of the LEFT jugular foramen extend ing to the middle ear cavity. This extends slightly into the middle ear cavity with a small enhancing component extending along the undersurface of the cochlea. This is closely associated with the jugul ar foramen and jugular vein. Associated flow voids are visualized. This measures approximately 1.4 x 1.9 x 2.9 CM. Opacification LEFT mastoid air cells. RIGHT mastoid air cells well aerated. Paranasal s inuses are well aerated. No evidence of restricted diffusion to suggest acute ischemia. Ventricular system and basal cisterns are patent. Moderate small vessel changes with moderate parenchymal volume loss. Small vessel changes in the kevin. Normal posterior fossa. Normal vascular flow voids at the skull base. No extra-axial fl uid collections. No evidence of mass or mass effect. Mild mucosal thickening in the sphenoid sinus. T iny chronic lacunar infarct RIGHT thalamus and bilateral basal ganglia. Normal optic chiasm and pituitary infundibulum. MR/MR iac's wo/w con* [id number] IMPRESSION: 1. 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 Small component extends out laterally itzel g the undersurface of the cochlea. Recommend further evaluation with contrast-e nhanced temporal bone CT for better anatomic detail. 2. Associated opacification LEFT mastoid air cells. 3. Moderate mucosal thickening LEFT sphenoid sinus. Paranasal sinuses are othe rwise well aerated. 4. No restricted diffusion to suggest acute ischemia. 5. Moderate small vessel changes with moderate parenchymal volume loss. 6. Small vessel changes in the kevin. 7. No hemosiderin on susceptibly weighted images. Notified Luigi Saldivar MD at 11/09/2021 12:11 PM.
[2021-11-09] MEDS: gadobenate dimeglumine 20 mL vial IV (10:58)
== END 2021-11-09 09:49 | disposition home or self-care (01) ==
LOC: RAD 09:52
PROVIDERS: PCP Family Medicine; Visit Provider Specialist
DX: D14.0 Benign neoplasm of middle ear, nasal cavity and accessory sinuses (principal)
CPT/HCPCS: 70553

== ENCOUNTER → 2021-11-30 14:01 | Outpatient (BNVA) | payer MEDICARE, SELFPAY | PROVIDERS: PCP Family Medicine; Visit Provider Internal Medicine | DX: Z09 Encounter for follow-up examination after completed treatment for conditions other than malignant neoplasm (principal); I48.91 Unspecified atrial fibrillation; I10 Essential (primary) hypertension | CPT/HCPCS: 99214 ==

== ENCOUNTER 2021-12-02 09:59 | Outpatient (CLI) | payer MEDICARE, SELFPAY ==
--- NOTE | 2021-12-02 10:22 | CTR_ITS ---
PROCEDURE INFORMATION: Exam: CT Temporal Bones Without Contrast. Exam date and time: 12/02/2021 11:03 AM Age: 66 years old Clinical indication: Other: Hearing loss; Additional info: Beign neoplasm of mid ear, nasal CA accessory sinuses TECHNIQUE: Imaging protocol: Computed tomography images of the temporal bones without contrast. Radiation optimization: All CT scans at this facility use at least one of these dose optimization techniques: automated exposure control; mA and/or kV adjustment per patient size (includes targeted exams where dose is matched to clinical indication); or iterative reconstruction. COMPARISON: MR iac's wo/w con* [id number] 11/09/2021 10:17 AM RADIATION DOSE METRICS: Total DLP (mGy-cm): 729.7 FINDINGS: Note: On the images provided, left and right temporal bone sequences appear to be mass labeled, when compared to axial images on series 24, and compared with 11/09/2021 MRI. Right inner ear: Normal. Right ossicles and middle ear: Normal. The middle ear ossicles are intact. Right external auditory canal: Normal. Right facial nerve canal: Normal. Right jugular foramen: No jugular dehiscence. Right carotid canal: No aberrant carotid canal. Right mastoid air cells: Normal. No mastoid effusions. Left inner ear: Normal. 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 There is soft tissue density eroding from the jugular canal into the left middle ear cavity, with no suspected erosion of the stapes. The scutum is intact. Left external auditory canal: Normal. Left facial nerve canal: Normal. Left jugular foramen: See above. Left carotid canal: No aberrant carotid canal. Left mastoid air cells: There is partial opacification of the left mastoid air cells. The left mastoids are hypo pneumatized compared to the contralateral right side. Paranasal sinuses: Sinus mucosal disease is noted. No air-fluid levels are seen. 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 There is suspected erosion of the left stapes.
== END 2021-12-02 10:00 | disposition home or self-care (01) ==
LOC: RAD 10:11
PROVIDERS: PCP Family Medicine; Visit Provider Specialist
DX: D14.0 Benign neoplasm of middle ear, nasal cavity and accessory sinuses (principal)
CPT/HCPCS: 70480

== ENCOUNTER 2022-02-01 12:24 | Emergency (ER) | payer MEDICARE, SELFPAY ==
[2022-02-01 12:41] VITALS: BP 152/82; PULSE 62; RESP 18; TEMP 36.8; O2SAT 95
[2022-02-01 13:02] LABS: Basophils % 0.3 %; Eosinophils # 0.2 10^3/uL (0.0-0.8); Eosinophils % 2.4 %; Hemoglobin 12.8 g/dL (11.7-16.6); Lymphocytes # 1.3 10^3/uL (0.8-4.8); Lymphocytes % 21.2 %; Mean Corpuscular HGB Conc 32.8 g/dL (30.0-36.0); Mean Corpuscular Hemoglobin 29.9 pg (28.0-34.0); Mean Corpuscular Volume 91.1 fl (80-94); Mean Platelet Volume 9.9 fL (7.4-10.4); Monocytes # 0.6 10^3/uL (0.2-0.9); Monocytes % 10.3 %; Neutrophils % 65.6 %; Nucleated Red Blood Cells % 0 %; Platelet Count 193 10^3/cmm (130-400); Red Blood Count 4.28 10^6/uL (4.1-5.3); White Blood Count 6.2 10^3/uL (4.0-10.0)
[2022-02-01 13:20] LABS: Alanine Aminotransferase 27 U/L (0-41); Alkaline Phosphatase 48 IU/L (40-130); Anion Gap 16.2 (5-19); Aspartate Amino Transferase 25 U/L (0-40); Blood Urea Nitrogen 14 mg/dL (8-23); Calcium 8.9 mg/dL (8.5-10.5); Carbon Dioxide 22 mmol/L (22-29); Chloride 101 mmol/L (98-107); Globulin 3.5 g/dL (1.3-4.6); Glomerular Filtration Rate 96.1 mL/min (90-130); Glucose 135 mg/dL (65-115); Lipase 21 U/L (13-60); Osmolality Calculated 283 mOsm/kg (285-295); Potassium 4.2 mmol/L (3.5-5.1); Sodium 135 mmol/L (136-145); Total Bilirubin 0.5 mg/dL (0.15-1.2); Total Protein 7.5 g/dL (6.6-8.7)
[2022-02-01 13:48] LABS: Add Urine Microscopic? NO; Charge for UA Resulting for Rev
[2022-02-01 13:55] LABS: Bilirubin Urine Neg (Negative); Blood Urine Neg (Negative); Glucose Urine UA Norm (Normal); Ketones Urine Negative (Negative); Leukocyte Esterase Urine Negative (Negative); Nitrate Urine Negative (Negative); Protein Urine Neg (Negative); Specific Gravity, Urine 1.005 (1.005-1.030); Urine Appearance Clear (CLEAR); Urine Color Yellow (Yellow); Urobilinogen Urine Norm (Negative); pH Urine 7 (5-7)
--- NOTE | 2022-02-01 13:55 | ED_ITS ---
Documented by User: ANDREA Glao 02/01/22 16:11 HPI - Abdominal Pain General: Chief Complaint: Abdominal Pain Stated Complaint: abdominal burning Time Seen by Provider: 02/01/22 13:23 Source: patient and family Mode of arrival: ambulatory Limitations: no limitations History of Present Illness: Patient is a nice 66-year-old male who presents to ED today along with his for evaluation of an umbilical hernia. Patient tells me he has had a chronic umbilical hernia over the past 6 to 7 years that is normally approximately golf ball sized and easily reducible. Patient states he has never had much issue with it. He states over the past few months he has noticed the size of the hernia increasing but again, it was never bothersome. He states approximately 3 to 4 days ago he began having some issues with constipation and some burning around the hernia site. He states over the weekend he was able to take some magnesium citrate and have a bowel movement. He is still passing flatulence. He states Sunday evening he ran a fever of 100.9 and reports the following day he began noticing redness to his abdomen around his umbilicus. He describes the pain near the hernia and rash as a burning sensation. No previous abdominal surgeries. Patient is on Eliquis-states he was placed on this following a COVID infection last year. MD elicited complaint: abdominal pain Onset (ago): day(s) Pain Consistency: constant Location: Periumbilical Quality: burning Radiation: none Migration to: no migration Associated Symptoms: Reports constipation and fever(s) (Sunday PM/Sunday AM); Denies dysuria, nausea and vomiting Review of Systems Const: Reports: fever(s) (Sunday/Sunday AM) Card: Denies: chest pain Resp: Denies: dyspnea GI: Reports: abdominal pain and constipation; Denies: nausea or vomiting : Denies: flank pain or dysuria Musc: Denies: neck pain, back pain, extremity pain or joint pain Skin/Breast: Reports: rash Neuro: Denies: headache(s), numbness in extremities, weakness in extremities or sensory changes [facility] ED PFSH: Medical History COVID-19 Hypertension Pneumonia Family History Mother Diabetes Social History Smoking and tobacco status: never smoked Second hand smoke exposure: No Smoking risk assessment/counseling performed?: No Alcohol intake: never Counseling given: No Counseling given: No Lives independently: Yes Household members: spouse Marital status: Current occupational status: retired History of recent travel: No Current gender identity: Male Physical Exam Const: COMMON NORMALS: no acute distress, patient oriented x3, no limitations and alert GENERAL APPEARANCE: cooperative NUTRITIONAL APPEARANCE: obese ORIENTATION/CONSCIOUSNESS: Yes awake, Yes oriented to person, Yes oriented to place and Yes oriented to time Resp: COMMON NORMALS: normal respiratory effort and clear to auscultation bilaterally AUSCULTATION: clear to auscultation bilaterally Cardio: COMMON NORMALS: regular rate and regular rhythm RATE: regular rate RHYTHM: regular rhythm GI: COMMON NORMALS: Soft to palpation INSPECTION: Yes visible herniation (umbilical hernia) and Yes other (abdominal wall cellulitis) AUSCULTATION: Yes normoactive bowel sounds PALPATION: Yes Soft to palpation and Yes Tenderness to palpation present (GI) (directly over umbilical hernia) OTHER: patient has a baseball sized umbilical hernia present with significant surrounding cellulitic changes; rash/erythema is warm to the touch : COMMON NORMALS: Yes no CVA tenderness BLADDER/KIDNEY EXAM: Yes no CVA tenderness Back/Pelvis: COMMON NORMALS: no CVA tenderness Neuro: COMMON NORMALS: patient oriented x3 SENSORIUM/ORIENTATION: Yes alert, Yes oriented to person, Yes oriented to place and Yes oriented to time Course ED course: Patient has a fairly large umbilical hernia with significant surrounding cellulitic changes. CT scan showing a periumbilical hernia containing sigmoid colon with surrounding edema and cellulitis. According to CT there is no evidence of obstruction/strangulation/gangrene. Patient is afebrile. He is not tachycardic. He has a normal white count and a normal lactate. I have spoken to general surgeon Dr. Alonso who will come evaluate patient. Consultations: Consultation #1: Dr. Alonso-will come evaluate patient in ED Vital Signs: Vital signs: Vital Signs Temperature 98.2 F 02/01/22 12:41 Pulse Rate 62 02/01/22 12:41 Respiratory Rate 18 02/01/22 12:41 Blood Pressure 152/82 02/01/22 12:41 Pulse Oximetry 95 02/01/22 12:41 MDM - Abdominal Pain Medical Decision Making Patient was evaluated by our general surgeon Dr. Alonso who was able to reduce patient's periumbilical hernia. Please refer to his specific note. He did not recommend any type of abdominal binder device. He recommended placing patient on 10 days of Clindamycin and he will follow-up in office in 2 weeks for elective hernia repair options. Patient was given strict return precautions. Lab Data : 02/01/22 12:55 02/01/22 12:55 Labs/Radiology: Radiology Impressions Abdomen/Pelvis CT 02/01/22 14:13 IMPRESSION: 1. Paraumbilical hernia containing sigmoid colon. Regional superficial cellulitis. 2. Diverticulosis. 3. Left adrenal lipomatous adenoma. 4. Bilateral renal probable benign cysts. No follow-up imaging is recommended. 5. Bilateral renal calyceal lithiasis. COMMENTS: 1. Consistent with the [employer]'s Incidental Findings Committee white paper (J Am Sangeeta Radiol 2017): For any incidental adrenal lesion greater than 1 cm but less than 4 cm classified in this report as benign, likely benign, or containing fat (including classification as an adenoma or myelolipoma), no follow-up imaging is recommended per consensus recommendations based on imaging criteria. Further lab evaluation could be pursued if warranted based on clinical findings. 2. Consistent with the [employer]'s Incidental Findings Committee white paper (J Am Sangeeta Radiol 2018): Any incidental renal lesion less than 1 cm or classified as too small to characterize, or any incidental cystic renal lesion characterized as simple-appearing, is likely benign. No follow-up imaging is recommended for these lesions per consensus recommendations based on imaging criteria. Laboratory Results WBC 6.2 10^3/uL (4.0-10.0) 02/01/22 12:55 RBC 4.28 10^6/uL (4.1-5.3) 02/01/22 12:55 Hgb 12.8 g/dL (11.7-16.6) 02/01/22 12:55 Hct 39.0 % (42.0-52.0) L 02/01/22 12:55 MCV 91.1 fl (80-94) 02/01/22 12:55 MCH 29.9 pg (28.0-34.0) 02/01/22 12:55 MCHC 32.8 g/dL (30.0-36.0) 02/01/22 12:55 RDW 14.0 % (12.1-15.1) 02/01/22 12:55 Plt Count 193 10^3/cmm (130-400) 02/01/22 12:55 MPV 9.9 fL (7.4-10.4) 02/01/22 12:55 Neut % (Auto) 65.6 % 02/01/22 12:55 Lymph % (Auto) 21.2 % 02/01/22 12:55 Ashe % (Auto) 10.3 % 02/01/22 12:55 Eos % (Auto) 2.4 % 02/01/22 12:55 Baso % (Auto) 0.3 % 02/01/22 12:55 Neut # (Auto) 4.10 10^3/uL (1.8-7.7) 02/01/22 12:55 Lymph # (Auto) 1.3 10^3/uL (0.8-4.8) 02/01/22 12:55 Ashe # (Auto) 0.6 10^3/uL (0.2-0.9) 02/01/22 12:55 Eos # (Auto) 0.2 10^3/uL (0.0-0.8) 02/01/22 12:55 Baso # (Auto) 0.0 10^3/uL (0.0-0.1) 02/01/22 12:55 Nucleated RBC % (auto) 0 % 02/01/22 12:55 Nucleated RBCs # 0.0 /100WBC 02/01/22 12:55 Sodium 135 mmol/L (136-145) L 02/01/22 12:55 Potassium 4.2 mmol/L (3.5-5.1) 02/01/22 12:55 Chloride 101 mmol/L (98-107) 02/01/22 12:55 Carbon Dioxide 22 mmol/L (22-29) 02/01/22 12:55 Anion Gap 16.2 (5-19) 02/01/22 12:55 BUN 14 mg/dL (8-23) 02/01/22 12:55 Creatinine 0.8 mg/dL (0.7-1.2) 02/01/22 12:55 GFR Calculation 96.1 mL/min (90-130) 02/01/22 12:55 Glucose 135 mg/dL (65-115) H 02/01/22 12:55 Calculated Osmolality 283 mOsm/kg (285-295) L 02/01/22 12:55 Lactic Acid 1.2 mmol/L (0.5-2.2) 02/01/22 12:55 Calcium 8.9 mg/dL (8.5-10.5) 02/01/22 12:55 Total Bilirubin 0.5 mg/dL (0.15-1.2) 02/01/22 12:55 AST 25 U/L (0-40) 02/01/22 12:55 ALT 27 U/L (0-41) 02/01/22 12:55 Alkaline Phosphatase 48 IU/L (40-130) 02/01/22 12:55 Total Protein 7.5 g/dL (6.6-8.7) 02/01/22 12:55 Albumin 4.0 g/dL (3.5-5.2) 02/01/22 12:55 Globulin 3.5 g/dL (1.3-4.6) 02/01/22 12:55 Lipase 21 U/L (13-60) 02/01/22 12:55 Urine Color Yellow (Yellow) 02/01/22 13:19 Urine Appearance Clear (CLEAR) 02/01/22 13:19 Urine pH 7 (5-7) 02/01/22 13:19 Ur Specific [place] 1.005 (1.005-1.030) 02/01/22 13:19 Urine Protein Neg (Negative) 02/01/22 13:19 Urine Glucose (UA) Norm (Normal) 02/01/22 13:19 Urine Ketones Negative (Negative) 02/01/22 13:19 Urine Blood Neg (Negative) 02/01/22 13:19 Urine Nitrate Negative (Negative) 02/01/22 13:19 Urine Bilirubin Neg (Negative) 02/01/22 13:19 Urine Urobilinogen Norm mg/dL (Negative) 02/01/22 13:19 Ur Leukocyte Esterase Negative (Negative) 02/01/22 13:19 Discharge Plan Discharge Patient Disposition: Home Clinical Impression: Cellulitis of abdominal wall, Umbilical hernia without obstruction and without gangrene Condition: Stable Prescriptions: New clindamycin HCl 300 mg capsule 300 mg PO Q6H 7 Days Qty: 28 0RF No Action alprazolam 0.25 mg tablet See Rx Instructions PO DAILY PRN (Reason: Anxiety) 0RF Rx Instructions: 1-2 tabs PO daily PRN; sertraline 100 mg tablet 150 mg PO DAILY@1000 0RF spironolactone 25 mg tablet 50 mg PO DAILY 0RF Protonix 40 mg tablet,delayed release (DR/EC) 40 mg PO DAILY 0RF albuterol sulfate 90 mcg/actuation HFA aerosol inhaler 2 puff inhalation Q6H PRN (Reason: shortness of breath or wheezing) 30 Days Qty: 8.5 4RF fluticasone propion-salmeterol [Advair Diskus] 100-50 mcg/dose blister with device 1 inh inhalation BID 30 Days Qty: 60 11RF Rx Instructions: please run through 340B ipratropium-albuterol 0.5 mg-3 mg(2.5 mg base)/3 mL solution for nebulization 3 ml inhalation Q4H Qty: 540 6RF Eliquis 5 mg tablet 5 mg PO Q12H Qty: 60 0RF losartan-hydrochlorothiazide 100-25 mg tablet 12.5 tab PO DAILY@2200 0RF fexofenadine 180 mg Tablet 180 mg PO DAILY 0RF bupropion HCl 75 mg Tablet 75 mg PO BID 0RF Vitamin D3 25 mcg (1,000 unit) Capsule 25 mcg PO DAILY 0RF Men's Daily 0.4-600 mg-mcg Capsule 1 cap PO DAILY 0RF melatonin 5 mg Tablet 5 mg PO BEDTIME 0RF Discharge Orders: Discharge ED (Routine); Ordered 02/01/22 Ordered By: Yoana Werner Referrals: Abdelrahman Alonso DO [Physician] - Vidal Kaye DO [Primary Care Provider] - Patient Instructions: Abdominal Hernia, Umbilical Hernia (ED) Activity Restrictions/Additional Instructions: As we discussed you need to fill antibiotics immediately. You need to return to the emergency department for worsening redness on your abdomen spite at least 48 hours of antibiotic therapy. You need to return to the emergency department immediately for severe abdominal pains, inability to pass gas or stool, fevers, repetitive episodes of vomiting, any other concerns you may have. As we discussed if hernia pops out again you were instructed to attempt reduction at home but if hernia is stuck and painful you need to immediately return to the ED. Coding Level of Care Code ED Weight Loss Sales Consultant for Chg Fwd Exam Detailed Documented by User: Lorenzo De Guzman DO 02/01/22 16:31 HPI - Abdominal Pain General: Chief Complaint: Abdominal Pain Stated Complaint: abdominal burning Time Seen by Provider: 02/01/22 13:23 PFSH ED PFSH: Medical History COVID-19 Hypertension Pneumonia Family History Mother Diabetes Social History Smoking and tobacco status: never smoked Second hand smoke exposure: No Smoking risk assessment/counseling performed?: No Alcohol intake: never Counseling given: No Counseling given: No Lives independently: Yes Household members: spouse Marital status: Current occupational status: retired History of recent travel: No Current gender identity: Male Course Vital Signs: Vital signs: Vital Signs Temperature 98.2 F 02/01/22 12:41 Pulse Rate 62 02/01/22 12:41 Respiratory Rate 18 02/01/22 12:41 Blood Pressure 152/82 02/01/22 12:41 Pulse Oximetry 95 02/01/22 12:41 MDM - Abdominal Pain Medical Decision Making Patient was evaluated by our general surgeon Dr. Alonso who was able to reduce patient's periumbilical hernia. Please refer to his specific note. He did not recommend any type of abdominal binder device. He recommended placing patient on 10 days of Clindamycin and he will follow-up in office in 2 weeks for elective hernia repair options. Patient was given strict return precautions. Chart reviewed and patient discussed with midlevel. Agree with assessment and plan. Lab Data : 02/01/22 12:55 02/01/22 12:55 Labs/Radiology: Radiology Impressions Abdomen/Pelvis CT 02/01/22 14:13 IMPRESSION: 1. Paraumbilical hernia containing sigmoid colon. Regional superficial cellulitis. 2. Diverticulosis. 3. Left adrenal lipomatous adenoma. 4. Bilateral renal probable benign cysts. No follow-up imaging is recommended. 5. Bilateral renal calyceal lithiasis. COMMENTS: 1. Consistent with the [employer]'s Incidental Findings Committee white paper (J Am Sangeeta Radiol 2017): For any incidental adrenal lesion greater than 1 cm but less than 4 cm classified in this report as benign, likely benign, or containing fat (including classification as an adenoma or myelolipoma), no follow-up imaging is recommended per consensus recommendations based on imaging criteria. Further lab evaluation could be pursued if warranted based on clinical findings. 2. Consistent with the [employer]'s Incidental Findings Committee white paper (J Am Sangeeta Radiol 2018): Any incidental renal lesion less than 1 cm or classified as too small to characterize, or any incidental cystic renal lesion characterized as simple-appearing, is likely benign. No follow-up imaging is recommended for these lesions per consensus recommendations based on imaging criteria. Laboratory Results WBC 6.2 10^3/uL (4.0-10.0) 02/01/22 12:55 RBC 4.28 10^6/uL (4.1-5.3) 02/01/22 12:55 Hgb 12.8 g/dL (11.7-16.6) 02/01/22 12:55 Hct 39.0 % (42.0-52.0) L 02/01/22 12:55 MCV 91.1 fl (80-94) 02/01/22 12:55 MCH 29.9 pg (28.0-34.0) 02/01/22 12:55 MCHC 32.8 g/dL (30.0-36.0) 02/01/22 12:55 RDW 14.0 % (12.1-15.1) 02/01/22 12:55 Plt Count 193 10^3/cmm (130-400) 02/01/22 12:55 MPV 9.9 fL (7.4-10.4) 02/01/22 12:55 Neut % (Auto) 65.6 % 02/01/22 12:55 Lymph % (Auto) 21.2 % 02/01/22 12:55 Ashe % (Auto) 10.3 % 02/01/22 12:55 Eos % (Auto) 2.4 % 02/01/22 12:55 Baso % (Auto) 0.3 % 02/01/22 12:55 Neut # (Auto) 4.10 10^3/uL (1.8-7.7) 02/01/22 12:55 Lymph # (Auto) 1.3 10^3/uL (0.8-4.8) 02/01/22 12:55 Ashe # (Auto) 0.6 10^3/uL (0.2-0.9) 02/01/22 12:55 Eos # (Auto) 0.2 10^3/uL (0.0-0.8) 02/01/22 12:55 Baso # (Auto) 0.0 10^3/uL (0.0-0.1) 02/01/22 12:55 Nucleated RBC % (auto) 0 % 02/01/22 12:55 Nucleated RBCs # 0.0 /100WBC 02/01/22 12:55 Sodium 135 mmol/L (136-145) L 02/01/22 12:55 Potassium 4.2 mmol/L (3.5-5.1) 02/01/22 12:55 Chloride 101 mmol/L (98-107) 02/01/22 12:55 Carbon Dioxide 22 mmol/L (22-29) 02/01/22 12:55 Anion Gap 16.2 (5-19) 02/01/22 12:55 BUN 14 mg/dL (8-23) 02/01/22 12:55 Creatinine 0.8 mg/dL (0.7-1.2) 02/01/22 12:55 GFR Calculation 96.1 mL/min (90-130) 02/01/22 12:55 Glucose 135 mg/dL (65-115) H 02/01/22 12:55 Calculated Osmolality 283 mOsm/kg (285-295) L 02/01/22 12:55 Lactic Acid 1.2 mmol/L (0.5-2.2) 02/01/22 12:55 Calcium 8.9 mg/dL (8.5-10.5) 02/01/22 12:55 Total Bilirubin 0.5 mg/dL (0.15-1.2) 02/01/22 12:55 AST 25 U/L (0-40) 02/01/22 12:55 ALT 27 U/L (0-41) 02/01/22 12:55 Alkaline Phosphatase 48 IU/L (40-130) 02/01/22 12:55 Total Protein 7.5 g/dL (6.6-8.7) 02/01/22 12:55 Albumin 4.0 g/dL (3.5-5.2) 02/01/22 12:55 Globulin 3.5 g/dL (1.3-4.6) 02/01/22 12:55 Lipase 21 U/L (13-60) 02/01/22 12:55 Urine Color Yellow (Yellow) 02/01/22 13:19 Urine Appearance Clear (CLEAR) 02/01/22 13:19 Urine pH 7 (5-7) 02/01/22 13:19 Ur Specific [place] 1.005 (1.005-1.030) 02/01/22 13:19 Urine Protein Neg (Negative) 02/01/22 13:19 Urine Glucose (UA) Norm (Normal) 02/01/22 13:19 Urine Ketones Negative (Negative) 02/01/22 13:19 Urine Blood Neg (Negative) 02/01/22 13:19 Urine Nitrate Negative (Negative) 02/01/22 13:19 Urine Bilirubin Neg (Negative) 02/01/22 13:19 Urine Urobilinogen Norm mg/dL (Negative) 02/01/22 13:19 Ur Leukocyte Esterase Negative (Negative) 02/01/22 13:19 Discharge Plan Discharge Patient Disposition: Home Clinical Impression: Cellulitis of abdominal wall, Umbilical hernia without obstruction and without gangrene Condition: Stable Prescriptions: New clindamycin HCl 300 mg capsule 300 mg PO Q6H 7 Days Qty: 28 0RF No Action alprazolam 0.25 mg tablet See Rx Instructions PO DAILY PRN (Reason: Anxiety) 0RF Rx Instructions: 1-2 tabs PO daily PRN; sertraline 100 mg tablet 150 mg PO DAILY@1000 0RF spironolactone 25 mg tablet 50 mg PO DAILY 0RF Protonix 40 mg tablet,delayed release (DR/EC) 40 mg PO DAILY 0RF albuterol sulfate 90 mcg/actuation HFA aerosol inhaler 2 puff inhalation Q6H PRN (Reason: shortness of breath or wheezing) 30 Days Qty: 8.5 4RF fluticasone propion-salmeterol [Advair Diskus] 100-50 mcg/dose blister with device 1 inh inhalation BID 30 Days Qty: 60 11RF Rx Instructions: please run through 340B ipratropium-albuterol 0.5 mg-3 mg(2.5 mg base)/3 mL solution for nebulization 3 ml inhalation Q4H Qty: 540 6RF Eliquis 5 mg tablet 5 mg PO Q12H Qty: 60 0RF losartan-hydrochlorothiazide 100-25 mg tablet 12.5 tab PO DAILY@2200 0RF fexofenadine 180 mg Tablet 180 mg PO DAILY 0RF bupropion HCl 75 mg Tablet 75 mg PO BID 0RF Vitamin D3 25 mcg (1,000 unit) Capsule 25 mcg PO DAILY 0RF Men's Daily 0.4-600 mg-mcg Capsule 1 cap PO DAILY 0RF melatonin 5 mg Tablet 5 mg PO BEDTIME 0RF Discharge Orders: Discharge ED (Routine); Ordered 02/01/22 Ordered By: Yoana Werner Referrals: Abdelrahman Alonso DO [Physician] - Vidal Kaye DO [Primary Care Provider] - Patient Instructions: Abdominal Hernia, Umbilical Hernia (ED) Activity Restrictions/Additional Instructions: As we discussed you need to fill antibiotics immediately. You need to return to the emergency department for worsening redness on your abdomen spite at least 48 hours of antibiotic therapy. You need to return to the emergency department immediately for severe abdominal pains, inability to pass gas or stool, fevers, repetitive episodes of vomiting, any other concerns you may have. As we discussed if hernia pops out again you were instructed to attempt reduction at home but if hernia is stuck and painful you need to immediately return to the ED. Coding Level of Care Code ED Weight Loss Sales Consultant for David Fwsana Exam Detailed
--- NOTE | 2022-02-01 14:13 | CTR_ITS ---
PROCEDURE INFORMATION: Exam: CT Abdomen And Pelvis Without Contrast Exam date and time: 02/01/2022 2:23 PM Age: 66 years old Clinical indication: Mass, lump, or swelling; Periumbilical; Abdominal pain; Localized; Lower; Additional info: Umbilical hernia; Surrounding erythema/cellulitis TECHNIQUE: Imaging protocol: Computed tomography of the abdomen and pelvis without contrast. Radiation optimization: All CT scans at this facility use at least one of these dose optimization techniques: automated exposure control; mA and/or kV adjustment per patient size (includes targeted exams where dose is matched to clinical indication); or iterative reconstruction. COMPARISON: CT angio chest PE protcl [id number] 10/07/2020 10:14 PM RADIATION DOSE METRICS: Total DLP (mGy-cm): 2112.51 FINDINGS: Lungs: Right middle lobe calcified pulmonary parenchymal granuloma. Diaphragm: The left hemidiaphragm is moderately elevated. Liver: Normal. No mass. Gallbladder and bile ducts: Normal. No calcified stones. No ductal dilation. Pancreas: Severe pancreatic atrophy. Spleen: Normal. No splenomegaly. Adrenal glands: Left adrenal gland 14.5 mm low attenuation nodule (-12.4 Hounsfield units). Kidneys and ureters: Bilateral renal probable benign cysts, largest on the right measuring 2.1 cm. Right renal lower pole 2.5 mm and upper pole 1.5 calyceal calculi. Left mid renal posterior sub mm mm calyceal calculus. No hydronephrosis/obstructive uropathy. Stomach and bowel: Sigmoid and descending colonic diverticula are present without evidence of diverticulitis. Appendix: The vermiform appendix is not identified on this examination. There is, however, no pericecal abnormality to suggest appendicitis. Intraperitoneal space: No free air. No significant fluid collection. Vasculature: Mild aortic atherosclerotic calcification without aneurysm. The iliac arteries show mild bilateral atherosclerotic calcifications without evidence of aneurysm. Calcified phleboliths are present in the lower pelvis bilaterally. Lymph nodes: No enlarged lymph nodes. Urinary bladder: Unremarkable as visualized. Reproductive: Unremarkable as visualized. Bones/joints: Lumbar spine vertebral body marginal osteophytes are noted at multiple levels. Moderate chronic T11 vertebral body compression deformity, stable. Soft tissues: A 10 cm paraumbilical hernia containing a loop of sigmoid colon without evidence of obstruction/strangulation/gangrene. Linea alba fascial defect 3.6 x 3.9 cm. . Mild skin thickening and subcu cutaneous adipose edema circumferentially around the paraumbilical hernia. No soft tissue fluid collection or ectopic gas identified. A small right inguinal hernia is present containing only intra-abdominal fat. CT/CT abdomen pelvis wo con [id number] IMPRESSION: 1. Paraumbilical hernia containing sigmoid colon. Regional superficial cellulitis. 2. Diverticulosis. 3. Left adrenal lipomatous adenoma. 4. Bilateral renal probable benign cysts. No follow-up imaging is recommended. 5. Bilateral renal calyceal lithiasis. COMMENTS: 1. Consistent with the [employer]'s Incidental Findings Committee white paper (J Am Sangeeta Radiol 2017): For any incidental adrenal lesion greater than 1 cm but less than 4 cm classified in this report as benign, likely benign, or containing fat (including classification as an adenoma or myelolipoma), no follow-up imaging is recommended per consensus recommendations based on imaging criteria. Further lab evaluation could be pursued if warranted based on clinical findings. 2. Consistent with the [employer]'s Incidental Findings Committee white paper (J Am Sangeeta Radiol 2018): Any incidental renal lesion less than 1 cm or classified as too small to characterize, or any incidental cystic renal lesion characterized as simple-appearing, is likely benign. No follow-up imaging is recommended for these lesions per consensus recommendations based on imaging criteria.
[2022-02-01] MEDS: sodium chloride 0.9% 1,000 ML 999 ML IV (14:30)
[2022-02-01 14:45] LABS: Lactic Sepsis W/Reflex 1.2 mmol/L (0.5-2.2)
[2022-02-01] MEDS: clindamycin 150 mg/mL SDV 6 mL 600 MG IM (16:25)
--- NOTE | 2022-02-01 17:03 | PM.CONSULT ---
Providers/Reason For Consult Consulting Physician/Specialty*: Dr. Abdelrahman Alonso DO/ General Surgery Reason for Consult*: incarcerated umbilical hernia Primary Care Provider: Vidal Kaye DO History of Present Illness History of Present Illness Imtiaz Sheth is a 66 year old male who comes to the hospital with a longstanding history of umbilical hernia. The umbilical hernia has been getting bigger over the last couple of years. He denies any new abdominal pain. He does have pain to palpation at the site. This pain is sharp and intermittent. Palpation makes the pain worse. Nothing makes the pain better. Pain does not radiate. Over the last 24 hours she developed a cellulitic rash overlying the hernia. This prompted him to come into the hospital. He denies any fever or chills. Denies any diarrhea or constipation. Denies any hematochezia or melena. A CT was performed and shows sigmoid colon in the hernia sac without any signs of strangulation. The ER was unable to manually reduce the hernia and therefore general surgery was consulted. Review of Systems General: Reports: 10 or more systems reviewed and unremarkable except in HPI and below Medications/Allergies Home Medications Medication Instructions Recorded Confirmed Last Taken Type alprazolam 0.25 mg tablet See Rx Instructions PO DAILY PRN 09/04/20 02/01/22 02/01/22 History sertraline 100 mg tablet 150 mg PO DAILY@1000 tab 09/04/20 02/01/22 02/01/22 History apixaban 5 mg tablet (Eliquis) 5 mg PO Q12H #60 tab 10/08/20 02/01/22 02/01/22 Rx losartan 100 12.5 tab PO DAILY@2200 tab 01/17/21 02/01/22 02/01/22 History mg-hydrochlorothiazide 25 mg tablet spironolactone 25 mg tablet 50 mg PO DAILY tab 02/21/21 02/01/22 02/01/22 History ipratropium 0.5 mg-albuterol 3 mg 3 ml INHALATION Q4H #540 ml 02/25/21 02/01/22 02/01/22 Rx (2.5 mg base)/3 mL nebulization soln pantoprazole 40 mg tablet,delayed 40 mg PO DAILY tab 06/20/21 02/01/22 02/01/22 History release (Protonix) fluticasone 100 mcg-salmeterol 50 1 inh INHALATION BID 30 Days #60 ea 08/30/21 02/01/22 02/01/22 Rx mcg/dose blistr powdr for inhalation (Advair Diskus) albuterol sulfate 90 mcg/actuation 2 puff INHALATION Q6H PRN 30 Days 12/20/21 02/01/22 02/01/22 Rx aerosol inhaler #8.5 g bupropion HCl 75 mg tablet 75 mg PO BID 02/01/22 02/01/22 02/01/22 History cholecalciferol (vitamin D3) 25 25 mcg PO DAILY 02/01/22 02/01/22 02/01/22 History mcg (1,000 unit) capsule (Vitamin D3) clindamycin HCl 300 mg capsule 300 mg PO Q6H 7 Days #28 cap 02/01/22 Unknown Rx fexofenadine 180 mg tablet 180 mg PO DAILY 02/01/22 02/01/22 02/01/22 History melatonin 5 mg tablet 5 mg PO BEDTIME 02/01/22 02/01/22 01/31/22 History multivit with minerals-folic 1 cap PO DAILY 02/01/22 02/01/22 02/01/22 History acid-lycopene 0.4 mg-600 mcg capsule (Men's Daily) Allergies Allergy/AdvReac Type Severity Reaction Status Date / Time Penicillins Allergy Unknown Unknown Verified 02/01/22 14:43 PFSH Acute PFSH: Medical History COVID-19 Hypertension Pneumonia Family History Mother Diabetes Social History Smoking and tobacco status: never smoked Second hand smoke exposure: No Smoking risk assessment/counseling performed?: No Alcohol intake: never Counseling given: No Counseling given: No Lives independently: Yes Household members: spouse Marital status: Current occupational status: retired History of recent travel: No Current gender identity: Male Vitals/I&O/Wt Last Vital Signs Temp 98.2 F 02/01/22 12:41 Pulse 62 02/01/22 12:41 Resp 18 02/01/22 12:41 BP 152/82 02/01/22 12:41 Pulse Ox 95 02/01/22 12:41 Weight last 48 hrs Weight 275 lb Physical Exam Narrative: General : Patient is well developed , no acute distress, oriented x3 Head : Normal cephalic, a-traumatic. Ears : Pinnae and external canal are normal. Hearing is normal. Eyes : PERRLA, Sclera and injection are normal. No conjunctival discharge. Nose : Mucous membranes are without erythema. Throat : buccal mucosa is normal, gums are without significant recession or hypertrophy. Lungs : Equal chest rise bilaterally, no use of accessory muscles, trachea is midline. Cor : Rate and rhythm are normal. Abdomen : Soft, ND, mild tenderness over an umbilical hernia that I was able to reduce, no g/r/m there is a superficial cellulitic rash over the hernia and across his abdomen. Extremities : No edema, no cyanosis or clubbing, dorsalis pedis pulses are present bilaterally, non-tender to palpation of calves. Upper extremities are normal bilaterally. Back : non-tender to palpation, no CVA tenderness. Neuro : CN II - XII intact, Upper and lower extremities have equal and full strength Data : 02/01/22 12:55 02/01/22 12:55 A&P Assessment and plan (1) Umbilical hernia without obstruction and without gangrene: Status: Acute (2) Cellulitis of abdominal wall: Status: Acute Plan His hernia was successfully reduced in the emergency room. Due to the overlying cellulitis, I would like him discharged home on 10 days of clindamycin. He should follow-up with me in 2 weeks to schedule outpatient umbilical hernia repair with mesh. Due to this infection there is a high risk of mesh infection and I would like to get this repaired with mesh in an elective fashion. He was given instructions to reduce his hernia once or twice a day himself. If he is unable to reduce his hernia or develops significant abdominal pain or fever he should return to the emergency room. Coding Level of Care Code Acute Workers Compensation Manager for David Garcia Diagnoses Umbilical hernia without obstruction and without gangrene K42.9 Cellulitis of abdominal wall L03.311
--- NOTE | 2022-02-02 09:44 | DCPLANNER ---
Addendum entered by Chanda Lindsay 04/25/22 19:19: Patient had a follow up appointment scheduled with general surgery - patient did attend appointment. Addendum entered by Chanda Lindsay 02/10/22 07:53: Patient has a follow up appointment scheduled for , February 16, 2022 at 8:[address] Alonso at General Surgery. Clinic will call patient with appointment information. Original Note: executive office manager had message to schedule a follow up appointment for patient with general surgery. executive office manager sent patients information to the front office staff at general surgery. Patients information will be printed and reviewed. Clinic will call patient with appointment information.
== END 2022-02-01 16:45 | disposition home or self-care (01) ==
PROVIDERS: Emergency Medicine; Emergency Provider Physician Assistant; PCP Family Medicine
DX: L03.311 Cellulitis of abdominal wall (principal); K42.9 Umbilical hernia without obstruction or gangrene; I10 Essential (primary) hypertension
CPT/HCPCS: 74176; 80053; 81003; 83605; 83690; 85025; 96372; 99284; J3490; J7030

== ENCOUNTER → 2022-02-16 08:24 | Outpatient (BNVA) | payer MEDICARE, SELFPAY | PROVIDERS: PCP Family Medicine; Referring Provider Physician Assistant; Visit Provider Surgery | DX: K42.9 Umbilical hernia without obstruction or gangrene (principal) | CPT/HCPCS: 99203 ==

== ENCOUNTER 2022-03-01 10:22 | Day surgery (SDC) | payer MEDICARE, SELFPAY ==
[2022-02-28 10:02] VITALS: BMI 37.3
[2022-03-01] VITALS (13 sets, daily range): BP systolic 110–137; BP diastolic 66–110; PULSE 63–88; RESP 16–30; TEMP 36.4–37.2; O2SAT 90–99
--- NOTE | 2022-03-01 10:51 | ECG_ITS ---
[facility] Test Date: 2022-03-01 Pat Name: Imtiaz Sheth Department: Room: Gender: Male Security Delivery Specialist: : 1955 Requested By: Alka Lew Order Number: [id number] Naren MD: Brent Scales M.D. Measurements Intervals [place] Rate: 68 P: 67 TN: 211 QRS: -43 QRSD: 101 T: 13 QT: 421 QTc: 449 Interpretive Statements SINUS RHYTHM WITH FIRST DEGREE AV BLOCK WITH OCCASIONAL SUPRAVENTRICULAR PREMATURE COMPLEXES LEFT AXIS DEVIATION [QRS AXIS < -30] PATTERN CONSISTENT WITH PULMONARY DISEASE Compared to ECG 10/08/2020 00:18:04 First degree AV block now present Left-axis deviation now present Sinus tachycardia no longer present Left anterior fascicular block no longer present Electronically Signed On 03-01-2022 15:17:46 CDT by Brent Scales M.D. [id number]
[2022-03-01] MEDS: sodium chloride 0.9% 1,000 ML 30 ML IV (11:02)
--- NOTE | 2022-03-01 11:27 | P.ANESASSM_ITS ---
Pre-Anesthetic Assessment Height/Weight: Height 1.83 m Weight 124.738 kg Temp Pulse Resp BP Pulse Ox 98.1 F 70 18 137/96 94 03/01/22 10:37 03/01/22 10:37 03/01/22 10:37 03/01/22 10:37 03/01/22 10:37 Preop Diagnosis: umbilical hernia Operation Date: 03/01/22 12:00 Proposed Procedures p lap poss open umbilical hernia with mesh 92094,K42.9(Not Applicable) - Abdelrahman Alonso DO Familial anesthetic complications: none Was Beta Apple taken within 24 hours: N/A Was Clonidine taken within 24 hours: N/A Last intake: Intake Last Liquid Date 02/28/22 Last Liquid Time 22:00 Last Solid Date 03/01/22 Last Solid Time 20:00 Social No alcohol and No tobacco Exam alert, oriented x 3, clear to auscultation bilaterally and regular rate & rhythm Airway Mallampati: Class IV Dentition: full Pulmonary Asthma, Exertional Dyspnea and Sleep Apnea CV/HEM Atrial Fibrillation and Hypertension Ef 50%, mild to mod MVR and AVR None reported Hepatic None reported Metabolic Hyperlipidemia [facility] None reported Neuropsych None reported Anesthetic Plan ASA status: 3 Anesthesia: General Risk of > 500 ml blood loss (7ml/kg in children): No Medications/Allergies Home Medications Medication Instructions Recorded Confirmed Last Taken Type alprazolam 0.25 mg tablet See Rx Instructions PO DAILY PRN 09/04/20 03/01/22 02/28/22 History sertraline 100 mg tablet 50 mg PO DAILY@1000 tab 09/04/20 03/01/22 02/28/22 History apixaban 5 mg tablet (Eliquis) 5 mg PO Q12H #60 tab 10/08/20 03/01/22 02/25/22 Rx losartan 100 12.5 tab PO DAILY@2200 tab 01/17/21 03/01/22 02/28/22 History mg-hydrochlorothiazide 25 mg tablet spironolactone 25 mg tablet 25 mg PO DAILY tab 02/21/21 03/01/22 02/28/22 History ipratropium 0.5 mg-albuterol 3 mg 3 ml INHALATION Q4H #540 ml 02/25/21 03/01/22 02/28/22 Rx (2.5 mg base)/3 mL nebulization soln pantoprazole 40 mg tablet,delayed 40 mg PO DAILY tab 06/20/21 03/01/22 02/28/22 History release (Protonix) fluticasone 100 mcg-salmeterol 50 1 inh INHALATION BID 30 Days #60 ea 08/30/21 03/01/22 02/28/22 Rx mcg/dose blistr powdr for inhalation (Advair Diskus) albuterol sulfate 90 mcg/actuation 2 puff INHALATION Q6H PRN 30 Days 12/20/21 03/01/22 02/28/22 Rx aerosol inhaler #8.5 g bupropion HCl 75 mg tablet 75 mg PO BID 02/01/22 03/01/22 02/28/22 History cholecalciferol (vitamin D3) 25 25 mcg PO DAILY 02/01/22 03/01/22 02/28/22 History mcg (1,000 unit) capsule (Vitamin D3) fexofenadine 180 mg tablet 180 mg PO DAILY 02/01/22 03/01/22 02/28/22 History melatonin 5 mg tablet 5 mg PO BEDTIME 02/01/22 03/01/22 02/28/22 History multivit with minerals-folic 1 cap PO DAILY 02/01/22 03/01/22 02/28/22 History acid-lycopene 0.4 mg-600 mcg capsule (Men's Daily) Allergies Allergy/AdvReac Type Severity Reaction Status Date / Time Penicillins Allergy Unknown Unknown Verified 02/28/22 09:59 Current Medications Generic Name Dose Route Start Last Admin Trade Name Freq PRN Reason Stop Dose Admin Sodium Chloride 1,000 mls @ 30 mls/hr 03/01/22 10:45 03/01/22 11:02 Sodium Chloride 0.9% IV 03/02/22 10:44 30 mls/hr .Q24H YANE Administration PFSH Anesthesia Medical History COVID-19 Hypertension Pneumonia Family History Mother Diabetes Social History Smoking and tobacco status: never smoked Second hand smoke exposure: No Smoking risk assessment/counseling performed?: No Alcohol intake: never Counseling given: No Counseling given: No Lives independently: Yes Household members: spouse Marital status: Current occupational status: retired History of recent travel: No Current gender identity: Male Data Anesthesia Cardiac Studies: Echocardiogram Ultrasound 10/08/20
[2022-03-01] MEDS: vancomycin 1,000 MG in sodium chloride 0.9% 250 ML 250 MG IV (12:17)
--- NOTE | 2022-03-01 12:17 | W.PM.OPSUD ---
Surgery/Procedure H&P Update DATE OF PROCEDURE: March 01, 2022 DATE H&P PERFORMED: 02/16/22 PREOP DIAGNOSIS: umbilical hernia PLANNED PROCEDURE: Operation Date: 03/01/22 12:00 Proposed Procedures p lap poss open umbilical hernia with mesh 28582,K42.9(Not Applicable) - Abdelrahman Alonso DO
--- NOTE | 2022-03-01 13:53 | PM.OP ---
Operative Report Date of procedure: March 01, 2022 Pre-op diagnosis: Preop Diagnosis umbilical hernia Post-op diagnosis: same Procedure done: Laparoscopic repair of umbilical hernia with mesh Implants: 6 inch mesh Specimens removed/disposition: Hernia sac Surgeon: Dr. Abdelrahman Alonso DO Estimated blood loss: 5 Complications: None apparent Brief History: This is a very pleasant 66-year-old gentleman who had a large umbilical hernia. Laparoscopic repair with mesh was indicated. Risks and benefits were explained and documented. Procedure: Patient was wheeled into the operative room and placed on the OR table in a supine position. Abdomen was inspected prepped and draped in usual sterile fashion. Time-out was performed and all present were in agreement. A 15 blade scalp was used to make a 5 millimeter incision left upper quadrant. A Veress needle was placed into the incision and intra-abdominal insufflation was brought to 15 millimeters of mercury. A 12 millimeter trocar was placed into the left lower quadrant. The energy but device was then used to cut out the hernia sac. A 15centimeter mesh was placed into the abdomen and brought up through the umbilicus using a Soto-Caroline. The mesh was then tacked in place in a double crown fashion. The hernia sac was then removed from the abdomen via an endobag at the left lower quadrant. The skeleton was removed from the mesh. The left lower quadrant port site was closed with an 0 Vicryl suture and a Soto-Caroline in a [id number] fashion. Incisions were closed with 4 O Vicryl in a subcuticular interrupted fashion. Skin glue was applied. A dressing that included cotton balls and a Tegaderm was placed over the umbilicus. Patient tolerated the procedure well.
[2022-03-01] MEDS: fentaNYL 50 mcg/mL INJ 2mL IVP (14:25)
--- NOTE | 2022-03-01 16:17 | ANE.PACU2 ---
Inpatient post-anesthesia follow up: Airway intact: Yes Vital signs: Temperature 97.8 F Pulse Rate 75 Respiratory Rate 16 Blood Pressure 126/72 Pulse Oximetry 92 Oxygen Delivery Me thod Nasal Cannula Oxygen Flow Rate 2 Fraction of Inspir ed Oxygen Hydration adequate: Yes Nausea and vomiting: No Pain level: 1 Mental status: Baseline
[2022-03-01] MEDS: ondansetron 2 mg/ML SDV 2 mL 4 MG IVP (16:28)
== END 2022-03-01 17:20 | disposition home or self-care (01) ==
PROVIDERS: PCP Family Medicine; Visit Provider Surgery
PROC: 0WQF4ZZ Repair Abdominal Wall, Percutaneous Endoscopic Approach (ICD-10-PCS; CPT 49652; principal; 2022-03-01 12:00)
DX: K42.9 Umbilical hernia without obstruction or gangrene (principal); I48.91 Unspecified atrial fibrillation; I10 Essential (primary) hypertension; G47.30 Sleep apnea, unspecified; Z86.16 Personal history of COVID-19
CPT/HCPCS: 49652; 88302; 93005; J1100; J2250; J2405; J2704; J2710; J3010; J3370; J3490; J3535; J7030; J7050

== ENCOUNTER → 2022-03-14 08:53 | Outpatient (BNVA) | payer MEDICARE, SELFPAY | PROVIDERS: PCP Family Medicine; Visit Provider Surgery | DX: Z98.890 Other specified postprocedural states (principal); Z87.19 Personal history of other diseases of the digestive system | CPT/HCPCS: 99024 ==

== ENCOUNTER → 2022-06-12 09:02 | Outpatient (BNVA) | payer MEDICARE, SELFPAY | PROVIDERS: PCP Family Medicine; Visit Provider Internal Medicine Critical Care Medicine | DX: J45.909 Unspecified asthma, uncomplicated (principal); J98.6 Disorders of diaphragm; E66.01 Morbid (severe) obesity due to excess calories; G47.33 Obstructive sleep apnea (adult) (pediatric); Z68.38 Body mass index [BMI] 38.0-38.9, adult; Z86.16 Personal history of COVID-19 | CPT/HCPCS: 99214 ==

== ENCOUNTER → 2022-08-31 14:07 | Outpatient (BNVA) | payer MEDICARE, SELFPAY | PROVIDERS: PCP Family Medicine; Visit Provider Internal Medicine | DX: I48.91 Unspecified atrial fibrillation (principal); Z79.01 Long term (current) use of anticoagulants; I10 Essential (primary) hypertension | CPT/HCPCS: 99213 ==

== ENCOUNTER → 2023-04-13 10:31 | Outpatient (BNVA) | payer MEDICARE, SELFPAY | PROVIDERS: PCP Family Medicine; Visit Provider Internal Medicine Pulmonary Disease | DX: J45.909 Unspecified asthma, uncomplicated (principal); J98.6 Disorders of diaphragm; E66.01 Morbid (severe) obesity due to excess calories; Z68.41 Body mass index [BMI] 40.0-44.9, adult; G47.33 Obstructive sleep apnea (adult) (pediatric); Z86.16 Personal history of COVID-19 | CPT/HCPCS: 99214 ==

== ENCOUNTER → 2023-04-19 14:05 | Outpatient (BNVA) | payer MEDICARE, SELFPAY | PROVIDERS: PCP Family Medicine; Visit Provider Family Medicine | DX: Z68.37 Body mass index [BMI] 37.0-37.9, adult (principal); I10 Essential (primary) hypertension; Z13.6 Encounter for screening for cardiovascular disorders; F41.9 Anxiety disorder, unspecified; F32.A Depression, unspecified; N32.81 Overactive bladder | CPT/HCPCS: 80053; 80061 ==

== ENCOUNTER → 2023-10-29 09:35 | Outpatient (BNVA) | payer MEDICARE, SELFPAY | PROVIDERS: PCP Family Medicine; Visit Provider Family Medicine | DX: Z13.6 Encounter for screening for cardiovascular disorders (principal); F41.9 Anxiety disorder, unspecified; F32.A Depression, unspecified; I10 Essential (primary) hypertension; G47.33 Obstructive sleep apnea (adult) (pediatric); E66.01 Morbid (severe) obesity due to excess calories; Z68.41 Body mass index [BMI] 40.0-44.9, adult; E11.9 Type 2 diabetes mellitus without complications | CPT/HCPCS: 80053; 80061; 83036 ==

== ENCOUNTER → 2024-06-30 08:24 | Outpatient (BNVA) | payer MEDICARE, SELFPAY | PROVIDERS: PCP Family Medicine; Visit Provider Family Medicine | DX: E11.9 Type 2 diabetes mellitus without complications (principal); I10 Essential (primary) hypertension; F41.9 Anxiety disorder, unspecified; F32.A Depression, unspecified; G47.33 Obstructive sleep apnea (adult) (pediatric) | CPT/HCPCS: 80053; 80061; 83036 ==

== ENCOUNTER → 2024-12-02 09:03 | Outpatient (BNVA) | payer MEDICARE, SELFPAY | PROVIDERS: PCP Family Medicine; Visit Provider Family Medicine | DX: E11.9 Type 2 diabetes mellitus without complications (principal); I10 Essential (primary) hypertension; G47.33 Obstructive sleep apnea (adult) (pediatric) | CPT/HCPCS: 80053; 80061; 83036 ==

== ENCOUNTER → 2025-06-08 08:26 | Outpatient (BNVA) | payer MEDICARE, SELFPAY | PROVIDERS: PCP Family Medicine; Visit Provider Family Medicine | DX: I10 Essential (primary) hypertension (principal); F41.9 Anxiety disorder, unspecified; F32.A Depression, unspecified; E11.9 Type 2 diabetes mellitus without complications; J45.909 Unspecified asthma, uncomplicated; E50.9 Vitamin A deficiency, unspecified | CPT/HCPCS: 80053; 80061; 82306; 83036 ==